=== PATIENT | female | born 1965 | race Caucasian/White ===

== ENCOUNTER 2021-02-04 12:31 | Emergency (ER) | payer MEDICAID, SELFPAY ==
[2021-02-04] VITALS (8 sets, daily range): BP systolic 119–138; BP diastolic 74–95; PULSE 77–88; RESP 16–18; TEMP 36.1; O2SAT 95–97; BMI 36.3
[2021-02-04 13:26] LABS: Absolute Lymphocyte Count 2.21 X10^3/uL (0.83-4.51); Absolute Neutrophil Count 3.1 X10^3/uL (2.0-7.7); Basophil# 0.03 X10^3/uL; Basophil% 0.5 % (0-1); Eosinophil# 0.19 X10^3/uL; Eosinophils% 3.2 % (0-5); Hematocrit 39.2 % (37-47); Lymphocyte # 2.21 X10^3/ul (0.83-4.51); Lymphocyte % 37.6 % (19-41); Mean Corp Hgb Conc 33.2 g/dL (32-36); Mean Corpuscular Hgb 29.1 pg (27.0-32.0); Mean Corpuscular Volume 87.9 fL (81-99); Mean Platelet Vol. 9.5 fl (6.2-12.0); Monocyte# 0.34 X10^3/uL; Monocyte% 5.8 % (0-10); NRBC Flagged by Analyzer 0 % (0-5); Neutrophil % 52.7 % (47-70); Platelet Count 263 K/mm3 (150-450); RBC Distribution Width CV 12.1 % (11.6-14.6); RBC Distribution Width SD 38.8 fl (35.1-43.9); Red Blood Count 4.46 M/mm3 (4.2-5.4); White Blood Count 5.9 K/mm3 (4.4-11.0)
--- NOTE | 2021-02-04 13:27 | ED.RN ---
States voices are telling her she was no good and piece of shit. Looking online for ways of suicide, states would use helium balloon to suffocate or would crash my car. Had episodes of auditory hallucinations 6 months ago as well. Previous attempts at suicide, 2013 and in my 20s. bus and sys integration senior manager at bedside states they attempted to get patient in with crisis but was unsuccessful so brought patient here.
[2021-02-04 13:36] LABS: Amphetamine Urine VISTA NEGATIVE (<1000 ng/mL); Barbiturate Urine VISTA NEGATIVE (< 200 ng/mL); Benzodiazepine Urine VISTA NEGATIVE (< 200 ng/mL); Cocaine Urine VISTA NEGATIVE (< 300 ng/mL); Ecstacy Urine VISTA NEGATIVE (< 500 ng/mL); Methadone Urine VISTA NEGATIVE (< 300 ng/mL); PCP Urine VISTA NEGATIVE (< 25 ng/mL); THC Urine VISTA NEGATIVE (< 50 ng/mL); Vista UDS pH Range 6
[2021-02-04 13:40] LABS: Anion Gap 4 (5-15); BUN 18 mg/dL (7-18); BUN/Creat Ratio 23.2 RATIO (10-20); Calcium,Total 9.4 mg/dL (8.5-10.1); Chloride 104 mmol/L (98-107); Creatinine, Serum 0.78 mg/dL (0.55-1.02); EST Glomerular Filtration Rate 82 mL/min (>60); Est Glom Filt Rate - Afr Amer 99 mL/min (>60); Estimated Creatinine Clearance 75.39 ml/min; Glucose 145 mg/dL (74-106); Potassium 3.9 mmol/L (3.5-5.1); Sodium Level 138 mmol/L (136-145)
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
--- NOTE | 2021-02-04 15:47 | EX.ED.DYSGE1 ---
HPI History of Present Illness Chief Complaint: Suicidal Narrative Narrative: Patient presenting with suicidal thoughts and has a plan to try to take her own life. She expresses that she may try to kill herself using helium and she also expresses no drive her car into park wall. He has not no attempt currently. Patient denies ingestion. PFSH PFSH Home Medications cyclobenzaprine 10 mg PO QHS 06/20/15 [History Last Taken 06/19/15 22:00] hydrocodone-acetaminophen 1 tab PO TID 06/20/15 [History Last Taken 06/20/15] hydroxyzine pamoate 25 mg PO 4X/DAY PRN PRN #100 capsule 06/22/15 [Rx Last Taken Unknown] Allergy/AdvReac Type Severity Reaction Status Date / Time acetaminophen [From Percocet] Allergy Swelling Verified 02/04/21 12:36 bee pollen Allergy Anaphylaxis Verified 02/04/21 12:36 ibuprofen Allergy Angioedema Verified 02/04/21 12:36 naproxen [From Aleve] Allergy Angioedema Verified 02/04/21 12:36 oxycodone HCl [From Percocet] Allergy Swelling Verified 02/04/21 12:36 Social History Smoking Status: Current every day smoker tobacco type: cigarettes ROS ROS ED Constitutional Constitutional ED: Denies chills, fever(s) or sweats Eyes Eyes: Denies blurry vision or change in vision ENT ENT ED: Denies ear pain or sore throat Cardiovascular Cardiovascular: Denies chest pain, palpitations or racing heartbeat Respiratory/Chest Respiratory/Chest: Denies cough, dyspnea or sputum Gastrointestinal Gastrointestinal: Denies abdominal pain, constipation, diarrhea, nausea or vomiting Genitourinary Genitourinary ED: Denies dysuria, hematuria or urinary frequency Musculoskeletal Musculoskeletal: Denies arthralgias, myalgias or neck pain Integumentary Denies abscess, Abrasions or rash Neurologic Neurologic: Denies headache(s), paresthesias or weakness Psychiatric Psychiatric: Reports depression, suicidal ideation and suicidal thoughts; Denies anxiety Endocrine Endocrinology: Denies polydipsia or polyuria EXAM Physical Exam Const Vital Signs: 02/04/21 12:33 02/04/21 14:33 Temperature 97 F L Temperature Source Temporal Pulse Rate 88 Respiratory Rate 16 16 Blood Pressure 119/95 H Blood Pressure Mean 103 Pulse Ox 95 Oxygen Delivery Method Room Air General Appearance ED: Negative for pallor HEENT Reports normocephalic, head/scalp atraumatic and moist mucous membranes Eyes PERRL and EOMs intact bilaterally Neck no lymphadenopathy and supple Chest Wall inspection of chest normal and palpation of chest normal Resp normal respiratory effort and clear to auscultation bilaterally Auscultation: Negative for rales, rhonchi or wheezes Cardio regular rate and regular rhythm GI normal to inspection, nondistended, normoactive bowel sounds and non-distended Auscultation: normoactive bowel sounds Palpation: soft Narrative: Deferred Extremity normal to inspection General Extremety ED: Negative for edema or tenderness General Extremity: Negative for edema Neuro oriented x3 and CN's II-XII intact bilaterally Sensorium / Orientation: alert Motor Exam: strength 5/5 throughout Psych Attitude: No agitated Thought Content: suicidality and No homicidality Insight: poor Judgement: poor Skin no rashes or lesions noted and no wounds General Skin Exam: Negative for jaundice or pallor MDM MDM MDM Narrative Medical decision making narrative: Patient presenting with suicidal ideation and a plan to take her own life. Patient did have blood work to medically clear her and her CBC and BMP are normal. EtOH is negative. Urine drug review screen is positive for opiates. Given patient's plan I think she needs to be pink slipped and would benefit from inpatient care. She is medically clear at this time. Impression: 1. Suicidal ideation with plan Lab Data Attestation: I reviewed the patient's lab results. Labs: Laboratory Results - last 24 hr 02/04/21 02/04/21 02/04/21 13:10 13:10 13:10 WBC 5.9 RBC 4.46 Hgb 13.0 Hct 39.2 MCV 87.9 MCH 29.1 MCHC 33.2 RDW Std Deviation 38.8 RDW Coeff of Rosalinda 12.1 Plt Count 263 MPV 9.5 Immature Gran % (Auto) 0.200 Neut % (Auto) 52.7 Lymph % (Auto) 37.6 Isabela % (Auto) 5.8 Eos % (Auto) 3.2 Baso % (Auto) 0.5 Absolute Neuts (auto) 3.1 Absolute Lymphs (auto) 2.21 Nucleated RBC % 0 Sodium 138 Potassium 3.9 Chloride 104 Carbon Dioxide 30.0 Anion Gap 4 L BUN 18 Creatinine 0.78 Estim Creat Clear Calc 75.39 Est GFR (MDRD) Af Amer 99 Est GFR (MDRD) Non-Af 82 BUN/Creatinine Ratio 23.2 H Glucose 145 H Calcium 9.4 Urine Opiates Screen Urine Methadone Screen Ur Barbiturates Screen Ur Phencyclidine Scrn Ur Amphetamines Screen U Methamphetamin-MDMA U Benzodiazepines Scrn Urine Cocaine Screen U Cannabinoids Screen Ur Drug Screen Comment Ethyl Alcohol 9.0 02/04/21 13:10 WBC RBC Hgb Hct MCV MCH MCHC RDW Std Deviation RDW Coeff of Rosalinda Plt Count MPV Immature Gran % (Auto) Neut % (Auto) Lymph % (Auto) Isabela % (Auto) Eos % (Auto) Baso % (Auto) Absolute Neuts (auto) Absolute Lymphs (auto) Nucleated RBC % Sodium Potassium Chloride Carbon Dioxide Anion Gap BUN Creatinine Estim Creat Clear Calc Est GFR (MDRD) Af Amer Est GFR (MDRD) Non-Af BUN/Creatinine Ratio Glucose Calcium Urine Opiates Screen POSITIVE H Urine Methadone Screen NEGATIVE Ur Barbiturates Screen NEGATIVE Ur Phencyclidine Scrn NEGATIVE Ur Amphetamines Screen NEGATIVE U Methamphetamin-MDMA NEGATIVE U Benzodiazepines Scrn NEGATIVE Urine Cocaine Screen NEGATIVE U Cannabinoids Screen NEGATIVE Ur Drug Screen Comment Ethyl Alcohol Discharge Plan Triage Chief Complaint: Suicidal ED Provider: Adonay Mendez Dx/Rx/DC Orders Prescriptions: No Action hydrocodone-acetaminophen 1 EACH tablet 1 tab PO TID RF: 0 cyclobenzaprine 10 MG tablet 10 mg PO QHS RF: 0 hydroxyzine pamoate 25 MG capsule 25 mg PO 4X/DAY PRN PRN (Reason: Itching) Qty: 100 RF: 0 Primary Care Provider: Care Physician,No Primary
[2021-02-04] MEDS: HYDROcodone Bitartrate/Apap 5/325 Tablet PO (16:26)
[2021-02-04] MEDS: RisperiDONE 0.5 MG Tablet 1 MG PO (19:39)
[2021-02-04] MEDS: Sertraline 50 MG Tablet PO (19:39)
[2021-02-04] MEDS: Mirtazapine 15 MG Tablet PO (19:39)
--- NOTE | 2021-02-04 19:40 | ED.RN ---
This RN took over at 1900. Hunter reassessment not done
--- NOTE | 2021-02-04 19:56 | ED.RN ---
REPORT CALLED TO TNP, WOOD PUGA.
--- NOTE | 2021-02-04 21:37 | CM.ED ---
MARYANNE faxed referral to [facility]. MARYANNE was contacted by [facility] staff. Admission wanted clarification and spoke to RN jovanny MADDEN called [facility] and was advised that patient was accepted. Requested call back. MARYANNE called [facility] again. Accepting MD is DR. Bowens. Patient is going to Intensive Care Unit. RN to RN is . Lizy called for transport for patient. It will be a couple of hours. MARYANNE faxed copy of pink slip to [facility]. Jovanny PUGA reports she called report and told them that it would be a couple of hours prior to patient being discharged to [facility]. MARYANNE updated patient that she will be discharged to [facility]. Patient verbalized understanding. Plan: [facility] Cinthia CHANDLER
== END 2021-02-04 23:29 ==
PROVIDERS: Emergency Provider Student in an Organized Health Care Education/Training Program
DX: R45.851 Suicidal ideations (principal); F17.210 Nicotine dependence, cigarettes, uncomplicated
CPT/HCPCS: 80048; 80307; 82077; 85025; 87426; 99285

== ENCOUNTER 2021-02-24 10:31 | Emergency (ER) | payer MEDICAID, SELFPAY ==
[2021-02-24 10:32] VITALS: BP 116/82; PULSE 81; RESP 18; TEMP 36.6; O2SAT 100; BMI 37.4
--- NOTE | 2021-02-24 10:37 | CM.ED ---
SOCIAL WORK Received call from Francoise with Crisis. Shanda has completed assessment. Patient requires inpatient psych hospitalization for stabilization. Will fax medical clearance once received. Crisis to facilitate placement. Staff puneet. Celso Hurley MSW, DATA PROCESSING AUDITOR
--- NOTE | 2021-02-24 10:38 | ED.RN ---
PT COUNSELLOR CURRENTLY WITH PT. PT UNDER OBSERVATION WHILE AWAITING ROOM ASSIGNMENT
[2021-02-24 11:08] LABS: Absolute Lymphocyte Count 2.08 X10^3/uL (0.83-4.51); Basophil# 0.05 X10^3/uL; Basophil% 0.6 % (0-1); Eosinophil# 0.23 X10^3/uL; Eosinophils% 2.6 % (0-5); Hematocrit 40.5 % (37-47); Lymphocyte # 2.08 X10^3/ul (0.83-4.51); Lymphocyte % 23.5 % (19-41); Mean Corp Hgb Conc 32.1 g/dL (32-36); Mean Corpuscular Hgb 28.3 pg (27.0-32.0); Mean Platelet Vol. 9.9 fl (6.2-12.0); Monocyte# 0.44 X10^3/uL; NRBC Flagged by Analyzer 0 % (0-5); Neutrophil # 6.03 X10^3/uL (2.7-7.7); Platelet Count 268 K/mm3 (150-450); RBC Distribution Width CV 12.2 % (11.6-14.6); RBC Distribution Width SD 39.5 fl (35.1-43.9); White Blood Count 8.9 K/mm3 (4.4-11.0)
[2021-02-24 11:21] LABS: Anion Gap 7 (5-15); BUN 17 mg/dL (7-18); BUN/Creat Ratio 20.7 RATIO (10-20); Calcium,Total 9.4 mg/dL (8.5-10.1); Chloride 103 mmol/L (98-107); Creatinine, Serum 0.82 mg/dL (0.55-1.02); EST Glomerular Filtration Rate 76 mL/min (>60); Est Glom Filt Rate - Afr Amer 92 mL/min (>60); Estimated Creatinine Clearance 68.93 ml/min; Glucose 143 mg/dL (74-106); Potassium 3.8 mmol/L (3.5-5.1); Sodium Level 140 mmol/L (136-145)
[2021-02-24 11:27] LABS: Amphetamine Urine VISTA NEGATIVE (<1000 ng/mL); Barbiturate Urine VISTA NEGATIVE (< 200 ng/mL); Benzodiazepine Urine VISTA NEGATIVE (< 200 ng/mL); Cocaine Urine VISTA NEGATIVE (< 300 ng/mL); Ecstacy Urine VISTA NEGATIVE (< 500 ng/mL); Methadone Urine VISTA NEGATIVE (< 300 ng/mL); PCP Urine VISTA NEGATIVE (< 25 ng/mL); THC Urine VISTA NEGATIVE (< 50 ng/mL); Vista UDS pH Range 5
--- NOTE | 2021-02-24 11:31 | EKG12_ITS ---
Test Reason : Blood Pressure : / mmHG Vent. Rate : 076 BPM Atrial Rate : 076 BPM P-R Int : 140 ms QRS Dur : 080 ms QT Int : 394 ms P-R-T Axes : 037 037 041 degrees QTc Int : 443 ms Normal sinus rhythm Nonspecific ST and T wave abnormality Abnormal ECG Confirmed by DARRON PATEL, ERIBERTO ([id number]), movie editor PAPITO MOHAMUD ([id number]) on 02/26/2021 10:04:35 AM Referred By: EMERY Confirmed By:ERIBERTO ROB MD
[2021-02-24 11:32] LABS: Alcohol, Blood (Medical)-Serum < 3.0 mg/dL
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
--- NOTE | 2021-02-24 12:42 | CM.ED ---
SOCIAL WORK Referral faxed to [facility]. Pending review at this time. Celso Hurley, CHIEF METER READER, WEB UI SOFTWARE ENGINEER
--- NOTE | 2021-02-24 13:40 | CM.ED ---
SOCIAL WORK Patient accepted to [facility] by Dr. Mauricio. Nurse to call report to [phone]. Intake reports believes able to provide transport via [facility] [employer] and will call this worker back with ETA. Cha requesting test. Dr. Mendez and staff updated. Plan: Semaj Hurley MSW, SPEECH THERAPY ASSISTANT
[2021-02-24 13:54] LABS: Internal QC Validated? YES +Cl - CLEAR BKGD; Pregnancy, Urine Negative Negative
[2021-02-24 14:00] VITALS: BP 121/74; PULSE 73; RESP 16; O2SAT 99
--- NOTE | 2021-02-24 14:30 | CM.ED ---
SOCIAL WORK Call from [facility]. Transport scheduled for 16:30 picker and packer by [facility]. Staff puneet. Celso Hurley MSW, CRYSTALIZER TENDER
--- NOTE | 2021-02-24 14:34 | NURSING ---
[facility] SENDING [facility] AT 1600
[2021-02-24] MEDS: HYDROcodone Bitartrate/Apap 5/325 Tablet PO (14:50)
[2021-02-24 16:36] VITALS: RESP 16
== END 2021-02-24 17:06 ==
PROVIDERS: Emergency Provider Student in an Organized Health Care Education/Training Program; Visit Provider Student in an Organized Health Care Education/Training Program
DX: R45.851 Suicidal ideations (principal); M06.9 Rheumatoid arthritis, unspecified; E11.9 Type 2 diabetes mellitus without complications; E78.00 Pure hypercholesterolemia, unspecified; F17.210 Nicotine dependence, cigarettes, uncomplicated; I10 Essential (primary) hypertension; Z79.899 Other long term (current) drug therapy; M48.00 Spinal stenosis, site unspecified; G89.29 Other chronic pain; J45.909 Unspecified asthma, uncomplicated; K21.9 Gastro-esophageal reflux disease without esophagitis; Z79.84 Long term (current) use of oral hypoglycemic drugs
CPT/HCPCS: G0480; 80048; 80307; 81025; 82077; 85025; 87426; 93005; 99285

== ENCOUNTER 2021-03-22 09:31 | Outpatient (RCR) | payer MEDICAID, SELFPAY ==
--- NOTE | 2021-03-22 10:05 | BH.SGPN.GN ---
Behaviors/Verbalizations/Mental Status: []Client alert and oriented, casually dressed and groomed. Eye contact fair. Motor activity appropriate. Speech within normal limits. Affect constricted, mood depressed. Thoughts linear, logical, no signs of hallucinations or delusions. Client Response/Progress/Benefit: []Pt was an engaged participant AEB pt listening attentively to others and providing input throughout. Attentive during psychoeducation on communication styles. Assisted group with identifying benefits of effective communication on mental health which included: getting needs met, improves relationships, maintains boundaries, and prevents additional conflict. Pt identified she most often uses passive and aggressive communication styles. Pt stated she will hold everything in until she explodes. Benefited from increased awareness of different communication barriers, styles, and the importance of communicating effectively to improve mental wellness. Will continue IOP tx to stablize moods, improve daily functioning and prevent decompensation.
--- NOTE | 2021-03-22 11:05 | BH.SGPN.GN ---
Behaviors/Verbalizations/Mental Status: []Client alert and oriented, casually dressed and groomed. Eye contact fair. Motor activity appropriate. Speech within normal limits. Affect constricted, mood dysthymic. Thoughts linear, logical, no signs of hallucinations or delusions. Client Response/Progress/Benefit: []Pt was an active participant in group discussion. Attentive during psychoeducation on communication styles (Passive, Passive-Aggressive, Aggressive, and Assertive) and benefits/disadvantages to each style. Pt reflected on how her aggressive communication style has impacted her mental health and relationships. Participated in the group activity and learned DEAR MAN skill. Pt reports wanting to work on the assertiveness component of this skill by explaining how she feels rather than expecting supports to read her mind. Benefited from learning DEAR MAN and setting a goal to improve communication. First day of IOP tx. Will continue IOP tx to prevent decompensation, gain healthy coping skills, and maintain safety. Narrative Note: []
--- NOTE | 2021-03-22 17:21 | BH.COMM_ITS ---
Communication Note - Communication with Client Communication Note: Met with patient to complete initial paperwork. No sig nificant change since pre-admission screening. Completed [facility] Suicide screening. Client presents as moderate-high risk due to two recent hospitalizations in the past two months. Client?s most recent hospitalization was due to an interrupted suicide attempt where client drove to a bridge to jump off and kill herself, but her case monitor ?talked me down.? Client reports history of a previous interrupted suicide attempt with the same plan when she was in her 20s. Client has a long-standing history of suicidal ideations, but had not been hospitalized for many years prior to her two most recent hospitalizations. Denied active SI, plan, or intent this AM. Denies any active suicidal ideations, plan, or intent since discharging from the hospital and reports feeling better since discharging from the hospital. Reviewed case with Dr. Carballo with plan to admit to IOP with dx of schizoaffective disorder F 24
--- NOTE | 2021-03-24 09:03 | BH.SGPN.GN ---
Behaviors/Verbalizations/Mental Status: [] Eye contact is good. Motor activity is appropriate. Appearance is casual. Speech is appropriate. Mood is euthymic. Affect is congruent. Thoughts are linear and logical. No evidence of psychosis. Reviewed daily symptom tracker sheet with no reports of suicidal ideations, plan, or intent. Client Response/Progress/Benefit: []Client was engaged throughout group session, sharing and listening attentively to others. Client reported her emotion of the day as ?content?. Client discussed seeing a celebrity on TV make comments on the holocaust, which brought up feelings of loss as some of her family members in the holocaust. Client stated that she yelled at the TV, which made her roommate upset, leading to an argument. Client described going into a rage, but that praying helped her regulate her emotions. Client appeared to benefit from group discussion of additional ways to help decrease anger when feeling rage. Will continue IOP treatment to increase emotion regulation and increase healthy emotional release skills. Narrative Note: []
--- NOTE | 2021-03-29 09:00 | BH.SGPN.GN ---
Behaviors/Verbalizations/Mental Status: []Eye contact is good. Motor activity is appropriate. Appearance is casual. Speech is slow. Mood is exhausted. Affect is flat. Thoughts are linear and logical. No evidence of psychosis. Reviewed daily symptom tracker sheet with no reports of suicidal ideations, plan, or intent. Client Response/Progress/Benefit: [] Client was engaged throughout group session, sharing and providing insight to others. Client reported her mood as ?exhausted?. Discussed seeing her sister who pressured her to discontinue IOP treatment and obtain employment. Client reports setting a boundary with her sister, stating that she would remain in IOP to improve her mental health to be able to manage a job. Client expressed that her sister does not understand mental health, but that she loves her. Appeared to benefit from supportive group discussion regarding setting healthy boundaries with supports. Progress noted AEB client reporting improved communication and healthy boundary setting with supports. Will continue IOP treatment to increase mood stability and continue improving healthy communication skills to allow client to obtain employment. Narrative Note: []
--- NOTE | 2021-04-02 11:07 | BH.SGPN.GN ---
Behaviors/Verbalizations/Mental Status: []Client alert and oriented, casually dressed and groomed. Eye contact good. Motor activity appropriate. Speech within normal limits. Affect congruent, mood anxious, dysthymic. Thoughts linear, logical, no signs of hallucinations or delusions. Client Response/Progress/Benefit: []Client responded well to session as evidenced by client listening attentively to others and providing strategies during small group discussion. Reflected on the importance of identifying and addressing personal warning signs, stating that this can help you do something about it ?before it gets too bad?. Client identified warning signs for crisis and gained further awareness of earliest warning signs. Client created a crisis action plan to help client better manage warning signs for crisis. Client?s action plan for crying spells included: take a shower, watch comedy, listen to music, do a puzzle, as well as reach out for help. Client appeared to benefit from creating a crisis action plan and increasing self-awareness. Progress noted in reports of increased insight and healthy boundary setting. Client to continue IOP tx to improve mood stability, continue to promote healthy coping, and prevent decompensation. Narrative Note: []
--- NOTE | 2021-04-05 10:08 | BH.SGPN.GN ---
Behaviors/Verbalizations/Mental Status: Client alert and oriented, casually dressed and groomed. Eye contact good. Motor activity appropriate. Speech within normal limits. Affect congruent, mood euthymic. Thoughts linear, logical, no signs of hallucinations or delusions. [] Client Response/Progress/Benefit: [] Client responded well to session AEB sharing and listening attentively to others. Client participated in experiential activity illustrating resilience, providing supportive feedback to others. Client participated in group processing, providing insight into the symbolic nature of the activity. Client participated in group discussion of where resilience comes from, expressing that she feels it is both a learned and inherent characteristic. Identified benefits of resilience including spending less time stressing, and barriers to building resilience as fear and not challenging themself. Clinician provided psychoeducation on ten strategies to increase resilience. Appeared to benefit from increased knowledge of strategies to build resilience. Will continue IOP treatment to continue increasing mood stability and decrease negative self talk to increase overall functioning. Narrative Note: []
--- NOTE | 2021-04-05 11:07 | BH.SGPN.GN ---
Behaviors/Verbalizations/Mental Status: []Client alert and oriented, casually dressed and groomed. Eye contact good. Motor activity appropriate. Speech within normal limits. Affect congruent, mood anxious and dysthymic. Thoughts linear, logical, no signs of hallucinations or delusions Client Response/Progress/Benefit: []Client responded well to session AEB contributing to discussion and completing the resilience worksheet provided. Client participated in the discussion of how each resiliency component can help increase personal resiliency. Worked cooperatively with group to identify strategies to enhance each of the components discussed. Client identifying doing well with the resilience components of: avoid seeing crises as insurmountable and nurture a positive view of yourself. Went on to reflect wanting to improve in the personal resilience component of ?Accept that change is a part of living?. Client stated she wants to work on this by taking more accountability for her daily actions/choices. Client seemed to benefit from discussing strategies for improving personal resilience. Will continue IOP tx to prevent decompensation, continue to promote application of healthy coping skills, and further reduce sx of depression. Narrative Note: []
--- NOTE | 2021-04-07 10:10 | BH.SGPN.GN ---
Behaviors/Verbalizations/Mental Status: Client alert and oriented, casually dressed and groomed. Eye contact good. Motor activity appropriate. Speech within normal limits. Affect flat, mood euthymic. Thoughts linear, logical, no signs of hallucinations or delusions. [] Client Response/Progress/Benefit: []Client responded well to session AEB sharing and listening attentively to others. Client participated in group discussion defining taking action, stating that it is ?being here to gain skills to use outside?. Provided an example of taking action as setting boundaries in relationships. Group identified barriers to taking action, with client stating that not identifying the need for change would be an example. Clinician discussed how certain emotional states can color our perspective, describing it as ?what is driving your bus?. Client provided a toxic person, not following through, and having limited support as driving her ?bus? most often. Appeared to benefit from increased self-awareness and knowledge regarding examples and barriers to taking action. Will continue IOP treatment to increase healthy communication skills and mood stability to improve daily functioning. Narrative Note: []
--- NOTE | 2021-04-12 11:10 | BH.SGPN.GN ---
Behaviors/Verbalizations/Mental Status: []Client alert and oriented, casually dressed and groomed. Eye contact good. Motor activity appropriate. Speech within normal limits. Affect congruent, mood anxious. Thoughts linear, logical, no signs of hallucinations or delusions. Client Response/Progress/Benefit: []Client an active participant AEB providing input to discussion and sharing examples throughout. Reviewed safety behaviors she engages in that reinforce anxiety, identifying avoidance as one she often turns to. Attentive during psychoeducation on mindfulness coping skills and their impact on mental health wellness. The group worked together to brainstorm anxiety reduction strategies. Client reported she will practice salt therapy, aromatherapy, and exercise as ways to help manage anxious symptoms. Client seemed to benefit from increased repertoire of anxiety reduction skills. Client will continue IOP tx to continue to practice healthy coping skills, challenge distorted thoughts, and prevent decompensation. Narrative Note: []
--- NOTE | 2021-04-14 09:04 | BH.SGPN.GN ---
Behaviors/Verbalizations/Mental Status: []Eye contact is good. Motor activity is appropriate. Appearance is casual. Speech is Appropriate. Mood is euthymic. Affect is congruent. Thoughts are linear and logical. No evidence of psychosis. Reviewed daily check in sheet and no reports of suicidal ideations or intent. Client Response/Progress/Benefit: [] Pt responded well to session AEB pt sharing thoughts and feelings, listening attentively to others and providing supportive feedback. Pt stated feeling encouraged today as she had challenged herself to step out of her comfort zone and set a boundary with her roommate the night before. Noted this had gone well and felt empowering for her. Shared reminding herself that her needs are important and that she is not responsible for her roommates reaction. Noted this has encouraged her to work towards setting a larger boundary next week. Appeared to benefit from reflecting on progress and skills used. Pt to continue IOP to continue use of healthy coping and thought challenge skills, improve boundaries, and prevent decompensation. Narrative Note: []
--- NOTE | 2021-04-19 09:03 | BH.SGPN.GN ---
Behaviors/Verbalizations/Mental Status: [] Client alert and oriented, casually dressed and groomed. Eye contact good. Motor activity appropriate. Speech within normal limits. Affect congruent, mood depressed, agitated. Thoughts linear, logical, no signs of hallucinations or delusions. Reviewed client?s symptom tracker denies any suicidal ideation, plan, or intent as of 04/13/21. Client Response/Progress/Benefit: []Client responded well to session, attentive and receptive to feedback on how to help client cope with disappointment regarding a support. Client reports feeling sad this morning as she is still struggling with ruination related to a disagreement with her roommate about a comment made by a mutual friend regarding mental health. Shared wishing her roommate had been more supportive and understanding when the comment had upset client. Related to shared frustrations expressed by fellow participants and suggestions for coping with this. Client noted that this stressor did not prevent her from enjoying her weekend and that she had been able to enjoy a wedding shower with family and not leave following the dispute which she shared as personal progress. Client will continue IOP tx to promote healthy conflict resolution, improve stress management, and continue to encourage mood stability. Narrative Note: []
== END 2021-03-24 10:43 | disposition home or self-care (01) ==
LOC: BHIOP 09:31
PROVIDERS: Referring Provider Psychiatry & Neurology Psychiatry; Visit Provider Psychiatry & Neurology Psychiatry
DX: F25.9 Schizoaffective disorder, unspecified (principal)
CPT/HCPCS: H2020

== ENCOUNTER 2021-03-23 07:32 | Outpatient (RCR) | payer MEDICAID, SELFPAY ==
--- NOTE | 2021-03-22 09:00 | BH.SGPN.GN ---
Behaviors/Verbalizations/Mental Status: []Eye contact is good. Motor activity is appropriate. Appearance is casual. Speech is appropriate. Mood is anxious. Affect is congruent. Thoughts are linear and logical. No evidence of psychosis. Reviewed daily symptom tracker sheet with no reports of suicidal ideations, plan, or intent. Client Response/Progress/Benefit: []Client was engaged and provided insight to others throughout group session. Client reported her emotion as ?scared?, as today is her first day of IOP treatment. Client discussed having bad dreams which led her to feel depressed and panic. Client appeared to benefit from group discussion of healthy coping skills to aid in relieving panic. Client reported reading her bible and praying as a way to help with these symptoms. Client stated that she is looking forward to improving her functioning through the program, as she needs to return to work. Will continue IOP treatment to prevent decompensation and increase knowledge of healthy coping skills to allow client to obtain employment. Narrative Note: []
--- NOTE | 2021-03-23 09:08 | BH.COMM ---
Communication Note - Communication with Client Communication Note: Met with patient to complete initial paperwork. No significant change since pre-admission screening. Completed [facility] Suicide screening. Client presents as moderate-high risk due to two recent hospitalizations in the past two months. Client?s most recent hospitalization was due to an interrupted suicide attempt where client drove to a bridge to jump off and kill herself, but her family service caseworker ?talked me down.? Client reports history of a previous interrupted suicide attempt with the same plan when she was in her 20s. Client has a long-standing history of suicidal ideations, but had not been hospitalized for many years prior to her two most recent hospitalizations. Denied active SI, plan, or intent this AM. Reports feeling better since discharging from the hospital. Reviewed case with Dr. Carballo with plan to admit to IOP with dx of schizoaffective disorder F 24
--- NOTE | 2021-03-24 10:10 | BH.SGPN.GN ---
Behaviors/Verbalizations/Mental Status: []Eye contact is good. Motor activity is slowed. Cooperative. Appearance is casual. Speech is Appropriate. Mood is dysthymic. Affect is constricted. Thoughts are linear and logical. No evidence of psychosis. Client Response/Progress/Benefit: []Engaged in experiential activity with peers. Attentive during psychoeducation on what is social support, the benefits of social support, and the things that keep us from utilizing social support for mental wellness. Attentive during interaction discussion and feedback from peers on these subjects AEB head nodding and note-taking. Able to see connection between experiential activity and group topic. Pt identified barriers to social support for her include: lack of trust, fear, peer pressure, and lack of communication. Benefited from increased awareness of the benefits of social support in maintain mental health. Will continue in IOP to stabilize moods, increase healthy coping and prevent decompensation. Narrative Note: []
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
[2021-03-24 12:05] VITALS: BP 129/76; PULSE 92
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
--- NOTE | 2021-03-24 12:47 | BH.DR.ITP ---
Initial Treatment Plan Patient Information Visit Information: ADMISSION DATE: EXPECTED LOS: 4-6 weeks Problems/Symptoms Problem #1:: Depression Symptom:: Sadness, low motivation, anhedonia, low energy, passive thoughts of , recent suicidal ideation Problem #2:: Anxiety Symptom:: Worry, rumination, panic attacks, nightmares, flashbacks, avoidance
--- NOTE | 2021-03-24 15:06 | BH.MDN_ITS ---
Multi-Disciplinary Note - Note 30-min Individual Time Started:: 12:03 Date: 03/24/21 Purpose of session/treatment goals addressed:: To gather information on client's current stressors, symptoms, triggers, and tx goals. Another goal was to build rapport and provide emotional support. Eye Contact:: Fair Motor Activity:: Appropriate Appearance:: Casual Speech:: Rambling, Soft Mood:: Dysthymic Affect:: Constricted Thoughts:: Linear, Logical, No evidence of hallucinations/delusions noted Staff Interventions:: psychoeducation on:, rapport building, strengths perspective, treatment planning Client Response:: Client responded well to session, open to meeting with therapist. Client reports feeling a little tired today because she spoke with the nurse and the IOP psychiatrist. Client shared she is enjoying the program and has found therapy helpful in the past. Client has a treatment team through [facility] including a psychiatric attendant, a counselor, and a vocational case manager. Client shared her vocational case manager is a strong support and deescalated client when client was suicidal. Client identified her IOP goals as getting back into the world which to client means getting a job and improving her functioning. Client stated she has a lot of fear about this, but she knows she needs to find employment. Client shared finances is one of the biggest stressors between client and her roommate. Client would also like to learn healthy coping skills to help regulate emotions and ruminations. Risks/Concerns:: Client denies any active suicidal ideations, plan, or intent as of 03/24/21. Client reports no SI since being discharged from the hospital. Future oriented. Progress Toward Goals/Plan:: Client?s first week of IOP tx and she reports enjoying the program and peers, but shared today was ?a lot of talking.? Client has a long-standing history of depression, auditory hallucinations, and trauma. Client is hopeful that IOP will ?teach me how to live again.? Client currently endorses a depressed mood, anhedonia, ruminations, low energy and motivation, and chronic auditory hallucinations. Client was hospitalized in February of this year, and prior to client's hospitalization she was experiencing suicidal ideations with a plan to drive her car off a bridge. Denies SI since being discharged. Will continue IOP tx to prevent decompensation, gain healthy coping skills, and improve daily functioning. Time Stopped:: 12:20
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
--- NOTE | 2021-03-24 15:08 | BH.MTP ---
[facility] Treatment Plan - Patient Information Program Physician:: Dr. Anita Morrison Primary Therapist:: Yanely QIU - Psychiatric Diagnoses Psychiatric Diagnoses:: Schizoaffective disorder, bipolar type F 25.0; PTSD; Generalized anxiety disorder Diagnosis Code(s):: F 25.0 - Estimated LOS Estimated LOS (in weeks):: 6 Problem/Goal #1 - Problem/Goal #1 Stated Goal:: Client will decrease depressive symptoms, guilt, low motivation, negative self-talk, and anhedonia. Description of Barriers: Client reports long-standing history of suicidal ideations and several attempts throughout her lifetime. Client's most recent attempts were triggered by conflicts with client's roommate. History of complex trauma that continues to impact client. Client is not currently working and she identifies this as a big stressor. Functional Impact: Client is a 55-year-old female with a history of schizoaffective disorder bipolar type. Client reports history of seven previous hospitalizations with the most recent two being in the last two months. Client was recently hospitalized at [facility] from 02/24/21- 03/03/21 due to suicidal ideation with plan to jump off a bridge. Client had not been hospitalized in 20 years prior to these past two hospitalizations. Client reports decompensation is due to psychosocial stressors and conflict with her roommate. Client reports chronic SI and hallucinations, but denies any command hallucinations now. Client reports auditory hallucinations are ongoing, but less intense and frequent. Reports depressive symptoms have improved since discharging from the hospital, but she still feels low. Client endorses low motivation, anhedonia, and lack of motivation. Outside of her treatment team at [facility], client has limited support and could benefit from IOP level of care. Goal Relevant Strengths/Supports: Client has a care team to support her mental health through [facility] which includes a immigration case manager, therapist, and rn psychiatric. Client's amadeo is a protective factor. - Objectives Objective #1 Stated Objective: Client will learn and utilize 2-3 healthy coping strategies to better manage depressive symptoms as shown by preventing decompensation of scores of the DMS-5 for depression. Interventions: Through group and individual sessions, therapist will help client identify triggers and warning signs of depression and emotional dysregulation including emotional, physical, and behavioral changes. Therapist will teach client various coping skills to manage her symptoms and give client tangible resources to use to regulate emotions. Therapist will use cognitive restructuring techniques and help client gain awareness of negative thoughts that reinforce guilt and depression. Therapist will provide psychoeducation on maintenance cycles and help client learn ways to break unhealthy maintenance cycles. Therapist will help client incorporate behavioral activation and assist client in setting SMART goals. Discharge Criteria: Client will have met this goal when she can report learning and using at least 2 coping skills to manage depressive symptoms. Additionally, client will have met this goal if she can prevent decompensation of depressive symptoms on the DSM-5 Target Date: 05/03/21 Review Date: 04/19/21 Status: open Objective #2 Stated Objective: Client will reduce depression and feelings of being hopelessness by accomplishing 1-2 small goals a week. Interventions: Through group and individual sessions, client will learn how to set small SMART goals to promote mood stability. Therapist will teach client the different kinds of self-care as well as the benefits of self-care. Therapist will help client problem-solve barriers and identify ways to increase accountability. Discharge Criteria: Client will have accomplished this goal when can report accomplishing at least one small goal a week. Target Date: 05/03/21 Review Date: 04/19/21 Status: open Problem/Goal #2 - Problem/Goal #2 Stated Goal:: Client will reduce anxiety/PTSD and panic symptoms while increasing ability to function on daily basis. Description of Barriers: Client reports long-standing history of suicidal ideations and several attempts throughout her lifetime. Client's most recent attempts were triggered by conflicts with client's roommate. History of complex trauma that continues to impact client. Client is not currently working and she identifies this as a big stressor. Functional Impact: Client is a 55-year-old female with a history of schizoaffective disorder bipolar type. Client reports history of seven previous hospitalizations with the most recent two being in the last two months. Client was recently hospitalized at [facility] from 02/24/21- 03/03/21 due to suicidal ideation with plan to jump off a bridge. Client had not been hospitalized in 20 years prior to these past two hospitalizations. Client reports decompensation is due to psychosocial stressors and conflict with her roommate. Client reports chronic SI and hallucinations, but denies any command hallucinations now. Client reports auditory hallucinations are ongoing, but less intense and frequent. Reports depressive symptoms have improved since discharging from the hospital, but she still feels low. Client endorses low motivation, anhedonia, and lack of motivation. Outside of her treatment team at [facility], client has limited support and could benefit from IOP level of care. Goal Relevant Strengths/Supports: Client has a care team to support her mental health through [facility] which includes a immigration case manager, therapist, and rn psychiatric. Client's amadeo is a protective factor. - Objectives Objective #1 Stated Objective: Client will identify 2-3 anxiety/panic triggers and 2 coping skills to use when feeling anxious to manage anxiety as shown by decreasing her DSM-5 scores for anxiety. Interventions: Therapist will provide education on anxiety, avoidance behaviors, and maintenance cycles. Therapist will help client explore personal symptoms and warning signs of anxiety. Therapist will teach client coping skills to improve emotional regulation, mindfulness, and distress tolerance to help client cope with anxiety in the moment. Discharge Criteria: Client will have accomplished this goal when she can identify at least 2 triggers and report using 2 coping skills to manage anxiety. Additionally, client will have accomplished this goal when her DSM-5 scores show a reduction for anxiety. Target Date: 05/03/21 Review Date: 04/19/21 Status: open Objective #2 Stated Objective: client will reduce anxiety and feelings of being overwhelmed by accomplishing 2-3 small self-care goals a week. Interventions: Through group and individual sessions, client will learn how to set small SMART goals to promote self-care and stress management. Therapist will provide education on stress and teach client effective stress management strategies. Discharge Criteria: Client will have accomplished this goal when can report accomplishing at least two small goals a week. Target Date: 05/03/21 Review Date: 04/19/21 Status: open
--- NOTE | 2021-03-29 10:00 | BH.SGPN.GN ---
Behaviors/Verbalizations/Mental Status: []Eye contact is good. Motor activity is appropriate. Appearance is casual and grooming tended to. Speech is Appropriate. Mood is dysthymic. Affect is flat. Thoughts are linear and logical. No evidence of psychosis Client Response/Progress/Benefit: []Pt was an engaged participant AEB providing input at times during group discussion and was attentive to others comments. Pt appeared attentive AEB taking notes during psychoeducation about cognitive distortions. Pt benefited from education and increased awareness of cognitive distortions and the role that they play on our behaviors and emotions. Shared with group top three distortions personally uses the most includes: all or nothing thinking, jumping to conclusions, and should/musts. Able to connect impact distortions has on her mental health. Will continue IOP tx to stabilize moods, increase healthy coping and prevent decompensation.
--- NOTE | 2021-03-29 11:15 | BH.SGPN.GN ---
Behaviors/Verbalizations/Mental Status: []Client alert and oriented, neatly dressed and groomed. Eye contact good. Motor activity appropriate. Speech within normal limits. Affect congruent, mood euthymic. Thoughts linear, logical, no signs of hallucinations or delusions. Client Response/Progress/Benefit: []Pt active throughout session, taking notes and contributing examples. Pt was an actively engaged participant in Cognitive Distortions Jeopardy and utilized notes from psychoeducation on cognitive distortions to assist peers in correctly answering questions. Experiential activity was beneficial as it provided a way for pt to review notes and handouts during psychoeducation to answer questions for the game. Pt reflected on today?s topic and wrote her biggest take away from session was learning it is ?okat to not think in black and white. It?s okay to think in the humphries areas.? Pt was given a thought log to complete for homework. Will continue in [facility] tx to prevent decompensation, gain healthy coping skills to help pt rejoin the workforce, and improve mood stability. Narrative Note: []
--- NOTE | 2021-03-31 09:02 | BH.SGPN.GN ---
Behaviors/Verbalizations/Mental Status: []Client alert and oriented, casually dressed and groomed. Eye contact good. Motor activity appropriate. Speech soft and slow. Affect constricted, mood disappointed per her report. Thoughts linear, logical, no signs of hallucinations or delusions. Reviewed client?s symptom tracker, no risk for suicidal ideation, plan, or intent as of 03/31/21 Client Response/Progress/Benefit: C[]Client responded well to session, receptive to feedback from peers. Client reports feeling disillusioned this morning. Client shared she has been ruminating about setting boundaries with her mother and not being able to switch IOP days. Client reported she has been isolating and feeling guilt because of the rumination. Group and hoist worker offered emotional support and helped client challenge distorted thought patterns. Client recognized that she struggles with prioritizing her self-care which makes setting boundaries even more challenging. Appeared to benefit from gaining reassurance on the importance of setting boundaries. Will continue IOP tx to prevent decompensation, increase healthy coping skills, and improve daily functioning. Narrative Note: []
--- NOTE | 2021-03-31 10:10 | BH.SGPN.GN ---
Behaviors/Verbalizations/Mental Status: [] Eye contact is good. Motor activity is appropriate. Appearance is casual. Speech is Appropriate. Mood is depressed. Affect is flat. Thoughts are linear and logical. No evidence of psychosis Client Response/Progress/Benefit: [] Pt was an active participant and engaged during group discussion. Attentive and engaged during psychoeducation on types of boundaries (physical, emotional, sexual, material, and time). Participated in interactive discussion on defining the role of a boundary in mental health. Pt along with peers were able to identify the benefit of setting boundaries which included; personal growth, more control over one's time and life, can improve relationships, can improve mental health, helps us respect ourselves more, and helps us get more accomplished. Pt also provided feedback along with peers on the barriers or things that keep us from from setting boundaries such as; wanting to avoid conflict, fear of missing out, fear of someone not liking us, fear of other's getting angry, belief that one will not stick with the boundary set, and feeling selfish. Benefited from increased awareness of the role of boundaries in mental health. Will continue in IOP to prevent decompensation and readmission to psychiatric hospital. Narrative Note: []
--- NOTE | 2021-03-31 11:10 | BH.SGPN.GN ---
Behaviors/Verbalizations/Mental Status: [] Client alert and oriented, casually dressed and appropriately groomed. Eye contact good. Slowed motor activity. Speech within normal limits. Affect constricted, mood euthymic. Thoughts linear and intact. no signs of delusions or hallucinations. Client Response/Progress/Benefit: [] Client responded well to session AEB listening attentively to peers and providing some input throughout. Client contributed during psychoeducation on the different boundary styles. Client identified connects most with having rigid boundaries with others. Client stated she has been taught that asking for help is weak and this perspective keeps her from reaching out to supports when needed. Participated in group discussion brainstorming various strategies for improving healthy personal boundaries. Client identified wanting to take time to evaluate one of her current relationships. Client stated she needs to identify within her relationship what boundaries she wants to set that can help move relationship to a healthier support. Will continue IOP tx to increase healthy coping skills, practice setting boundaries, improve stress management and prevent decompensation.
--- NOTE | 2021-03-31 15:18 | BH.MDN ---
Multi-Disciplinary Note - Note 30-min Individual Time Started:: 12:15 Date: 03/31/21 Purpose of session/treatment goals addressed:: To identify stressors and triggers in client's life that are contributing to her mental health symptoms. Another goal was to discuss healthy vs unhealthy relationships and boundaries. Eye Contact:: Good Motor Activity:: Appropriate Appearance:: Casual Speech:: Soft Mood:: Dysthymic Affect:: Congruent Thoughts:: Circular, No evidence of hallucinations/delusions noted Staff Interventions:: thought challenging, motivational interviewing, psychoeducation on: - boundaries, rapport building, taught coping skills - boundary setting skills Client Response:: Client responded well to session, open to meeting with therapist. Client reports the group topic today, boundaries, made client realize that I need a healthier relationship with my roommate. Client shared she and her roommate are strictly platonic, but there is some jealously and control from her roommate. They have been roommates and friends for years. Client gave examples unhealthy traits this relationship including frequent conflict, stonewalling, physical/verbal aggression, and attempts at isolating client from supports. Client shared I can't spend time with other friends without a fight. Client also reports a financial imbalance which causes significant stress and frustration for client. Client stated the relationship conflict with her roommate is what triggered her most recent suicidal thoughts and hospitalization. Client acknowledged she struggles with setting boundaries due to guilt, ruminations, and no models for healthy relationships. Client reports she is struggling to set boundaries because her roommate has not respected previous boundaries. Client also shared I'm an all or nothing kind of girl meaning she either sets very firm boundaries or none at all. Discussed the benefits of reflecting on what boundaries client wants before having another conversation with her roommate and reflecting on what the relationship gives to and takes from client. Client plans to write her reflections for homework and will discuss this next week. Risks/Concerns:: Denies any suicidal ideations, plan, or intent as of 03/31/21. Future oriented. No HI. Progress Toward Goals/Plan:: Client is making progress towards her tx goals and reports IOP has been teaching her valuable skills. Client is gaining awareness of her warning signs, triggers, and importance of boundaries. Client has also been denying any SI or passive thoughts of which is progress. Client continues to ruminate excessively, sharing she ruminated about not being able to switch IOP days for several days. Client also reports depressive symptoms, low motivation, difficulty concentrating, and chronic auditory hallucinations. Client will continue IOP tx to promote mood stability, increase ability to cope with stressors, and improve functioning. Time Stopped:: 12:40
--- NOTE | 2021-04-02 09:05 | BH.SGPN.GN ---
Behaviors/Verbalizations/Mental Status: [] Eye contact is good. Motor activity is appropriate. Appearance is casual. Speech is Appropriate. Mood is euthymic. Affect is flat. Thoughts are linear and logical. No evidence of psychosis. Reviewed daily check in sheet and no reports of suicidal ideations or intent. Client Response/Progress/Benefit: [] Pt was an active participant in group discussion. Attentive. Provided appropriate feedback. Emotion for today is hopeful. Mental health win was that she [facility] with her [facility]. She talked at length regarding her conflicted relationship with her mother as well as he mother's deteriorating memory and health. She reports that these visits are very difficult emotionally and discussed her reasons visiting with her mother. Mentioned feeling overwhelmed, depressed, and anxious. Mentioned crying spells. Insight that these emotions are normal and believes that once mother passes on she will feel better for making this effort despite my mom abandoning me. States it best to forgive. Hopeful about today and this weekend. Benefited from group support, encouragement, and feedback. Will continue in IOP to prevent decompensation, stabilize mood, and increase healthy coping. Narrative Note: []
--- NOTE | 2021-04-02 10:06 | BH.SGPN.GN ---
Behaviors/Verbalizations/Mental Status: []Client alert and oriented, casually dressed and groomed. Eye contact good. Motor activity appropriate. Speech within normal limits. Affect constricted, mood euthymic. Thoughts linear, logical, no signs of hallucinations or delusions Client Response/Progress/Benefit: []Client engaged during session AEB client contributing thoughts throughout discussion and completing worksheet. Connected with discussion on crisis and how coping with external crises by using unhealthy coping skills could result in a personal crisis. Group reflected on the importance of having awareness of personal warning signs to prevent reaching crisis point. Group identified potential warning signs for crisis and client completed the personal warning signs worksheet. Client identified personal crisis warning signs to include: crying more, lack of concentration, and rapid mood changes. Client benefited by increasing awareness of what leads to crisis and personal warning signs. Client will continue IOP tx to prevent decompensation, gain healthy coping skills, and improve interpersonal effectiveness skills. Narrative Note: []
--- NOTE | 2021-04-05 09:00 | BH.SGPN.GN ---
Behaviors/Verbalizations/Mental Status: []Client alert and oriented, casually dressed and groomed. Eye contact good. Motor activity appropriate. Speech within normal limits-slow. Affect constricted, mood euthymic. Thoughts linear, logical, no signs of hallucinations or delusions. Reviewed client?s symptom tracker, no risk for suicidal ideation, plan, or intent as of 04/05/21 Client Response/Progress/Benefit: [] Client responded well to session, providing supportive statements to peers. Client reports feeling very sleepy this morning because she stayed up late watching football. Client shared she was proud of herself for getting up this morning and showering before coming to IOP. Client also recently got a gift from a friend which made client feel happy and client has been learning more about healthy boundary setting. Client's relationship with her mother and her roommate continue to be ongoing stressors impacting client's mental health. Appeared to benefit from group feedback on boundary setting. Progress noted in client's increasing self-awareness. Will continue IOP tx to prevent decompensation, gain healthy coping skills, and reduce ruminations. Narrative Note: []
--- NOTE | 2021-04-07 09:00 | BH.SGPN.GN ---
Behaviors/Verbalizations/Mental Status: []Client alert and oriented, casually dressed and groomed. Eye contact good. Motor activity appropriate. Speech within normal limits. Affect congruent, mood euthymic. Thoughts linear, logical, no signs of hallucinations or delusions. Reviewed client?s symptom tracker, no risk for suicidal ideation, plan, or intent as of 04/07/21 Client Response/Progress/Benefit: []Client responded well to session, willing to share and receptive of support from peers. Client reports feeling enthusiastic this morning and attributes this to having an appointment with her welfare case worker to discuss financial assistance for bills while client is not working. Expressed this has helped to feel more confident in her decision to delay working and focus on her mental health needs instead. Went on to discuss a current stressor as beginning to experience more panic in the afternoons. Shared this may be related to continued progress she is making in setting healthy boundaries with her sister who struggles to understand client?s mental health needs. Did well to identify calming skills such as 5-senses technique to use when identifying warning signs for anxiety. Appeared to benefit from support from group. Client progress noted in improved mood and skill application. Will continue IOP tx to prevent decompensation, continue to improve anxiety management skills, and further encourage healthy boundary setting. Narrative Note: []
--- NOTE | 2021-04-07 11:15 | BH.SGPN.GN ---
Behaviors/Verbalizations/Mental Status: []Client alert and oriented, casually dressed and groomed. Eye contact good. Motor activity slowed. Speech within normal limits. Affect congruent, mood euthymic, positive. Thoughts linear, logical, no signs of hallucinations or delusions. Client Response/Progress/Benefit: []Client responded well to session, taking notes and participating in worksheet discussion. Client reported she wants to work on decreasing power a toxic person has on her life. Client stated her goal is to set boundary with roommate once a week. Identified making goal a priority, praying, and setting a reminder as strategies to help support her with this goal. Appeared to benefit from identifying a small goal to benefit mental health. Client to continue IOP to improve confidence, increase ability to set healthy boundaries, and prevent decompensation.
--- NOTE | 2021-04-07 11:49 | PCM.BH.PN_ITS ---
Progress Note Progress Note: History of Present Illness/Interim History: The patient is a with a history of schizoaffective disorder 55-year-old female who is seen in follow- up at the [facility] behavioral health IOP program. I last saw the patient 2 weeks ago her mood is good. But. The patient states that she feels that she her anxiety has worsened a lot lately. She says she has had 3 panic attacks in the past week and they have been more severe than they used to be be. She feels that this is due to financial stress because she has not been working and the fact that her taxes are taking longer than she thought they would to do. Her complex case manager told the patient that she may be able to get her some financial help with her bills. The patient feels that this would lessen her stress which she feels has increased her panic attacks. She is also was continue eating to work on setting boundaries with her roommate and this also is somewhat stressful for her. She remains at baseline or less with her auditory hallucinations. She has been compliant with her medications. She continues to have chronic passive thoughts of . But however she denies any suicidal ideation, homicidal ideation, delusions or hallucinations other than the mild to minimal auditory hallucinations that she is able to ignore now and are barely there. She has been compliant with her medications. (increased on February 24, 2021) Risperdal 3 mg p.o. twice daily; Remeron 30 mg p.o. nightly (increased February 24); Zoloft 100 mg p.o. twice a day; prazosin MSE: the patient is a [] [] Diagnoses: [] Plan: [] 55-year-old single female who is seen wearing a mask due to the pandemic and is casually dressed and groomed with good hygiene. She is cooperative during the interview and has no psychomotor agitation or retardation. Eye contact is good and speech is normal rate and rhyt Thought process is goal-directed and organized. Thought content:hm and fluent with no pressure. Mood is euthymic. Affect is constricted. There is evidence of minimal baseline chronic auditory hallucinations which say negative comments but are very difficult to hear and she is able to easily ignore them. There is no evidence of any other delusions or hallucinations. There is no evidence of homicidal ideation, suicidal id eation, plan for suicide. There i Reality testing is intact.s evidence of chronic, passive thoughts of . Judgment is intact. Insight is good. Impulsivity is moderate. 1. Schizoaffective disorder, bipolar type II. PTSD 3. Generalized anxiety disorder 4. Primary support and housing issues Plan patient will continue the IOP program at [facility] as the structure, support, education, and group therapy will hopefully prevent worsening of the patient's symptoms which might require rehospitalization. She felt safe during the interview and if it anytime she does not feel safe she will let us know or go to the emergency room. The risks, options, possible complications and side effects of the medications were again discussed with the patient and she understands and accepts these. The patient was given a refill for her Remeron prescription today. In addition hydroxyzine she was given 25 mg, 1-2 #90 with 1 refill. Prescription was sent in for the Vistaril and the Remeron refill. p.o. as needed for panic attack up to 3 times a day. She will continue to follow-up with her outpatient providers and I will see the patient in follow-up in 1 to 2 weeks.:
--- NOTE | 2021-04-07 14:26 | BH.MDN ---
Multi-Disciplinary Note - Note 30-min Individual Time Started:: 12:15 Date: 04/07/21 Purpose of session/treatment goals addressed:: To address current stressors, symptoms, and progress towards treatment goals. Another goal was to discuss boundaries and healthy relationships. Eye Contact:: Fair Motor Activity:: Appropriate Appearance:: Casual Speech:: Tangential, Other - slow Mood:: Anxious Affect:: Constricted Thoughts:: Circular, No evidence of hallucinations/delusions noted Staff Interventions:: motivational interviewing, CBT techniques, mindfulness skills - reviewed deep breathing, strengths perspective, taught coping skills - discussed improving self-worth through exploring why pt deserves boundaries. Gave pt the personal bill of rights., other - boundary setting and healthy relationships Client Response:: Client responded well to session, open to meeting with therapist. Client reports overall she has been feeling much better than she was a month ago. Client stated she no longer feels suicidal and her depression is resolving. Client reports her biggest stressors continue to be her finances and her self-report toxic relationship with her roommate. Client shared her anxiety has been high because she has not got her taxes back and is living off of her savings. This also contributes to her relationship stress as client's roommate does not pay the bills. Client stated she is working with her renal case manager to find assistance to help pay bills. Client completed her homework from last session and she shared I'm struggling to find anything positive in the relationship with her roommate. Client shared she feels torn because she can see the relationship is toxic, but she does not like change. Client wants to start by setting small boundaries and see how her roommate reacts. Discussed coping skills she can use to help set boundaries and manage anxiety. Client also provided with the personal bill of rights and encouraged to identify why she deserves healthy boundaries. Risks/Concerns:: Client denies any suicidal ideations, plan, or intent as of 04/07/21. Future oriented. Denies any HI. Progress Toward Goals/Plan:: Client is making progress towards her treatment goals AEB self-report of no suicidal ideations and reduced depressive symptoms. Client, however, reports her anxiety has worsened recently which client contributes to interpersonal relationship issues and financial stress. Client has been having panic attacks which is out of character for client, per her report. Has been working with renal case manager to help with financial situation. Will continue IOP tx to prevent decompensation of anxiety symptoms, improve emotional regulation skills, and increase ability to set healthy boundaries. Time Stopped:: 12:45
--- NOTE | 2021-04-09 10:28 | BH.COMM ---
Communication Note - Communication with Client Communication Note: cancelled due to weather
--- NOTE | 2021-04-12 09:00 | BH.SGPN.GN ---
Behaviors/Verbalizations/Mental Status: [] Eye contact is good. Motor activity is appropriate. Appearance is casual. Speech is Appropriate. Mood is depressed. Affect is flat. Thoughts are linear and logical. No evidence of psychosis. Reviewed daily check in sheet and no reports of suicidal ideations or intent. Client Response/Progress/Benefit: [] Pt was an active participant in group discussion. Attentive. Provided appropriate feedback. Daily symptom tracker notes 02/24 for anxiety and depression. Reports that she had several panic attacks over the weekend and had to utilize PRN medications. Primary triggers was notice that she might get her utilities shut off. Worried and fearful. She reports that she may get my taxes back which will help pay the bill. 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 She is contemplating getting a job as she has not had one since January (due to her mental health and 2 psych admits). She reports increased stability and states she likes to work. Regression noted per pt report. Benefited from group support, encouragement, and feedback. Will continue in IOP to maintain safety, prevent decompensation, and improve functioning. Narrative Note: []
--- NOTE | 2021-04-12 10:05 | BH.SGPN.GN ---
Behaviors/Verbalizations/Mental Status: []Client alert and oriented, casually dressed and groomed. Eye contact good. Motor activity appropriate. Speech within normal limits. Affect flat, mood euthymic. Thoughts linear, logical, no signs of hallucinations or delusions. Client Response/Progress/Benefit: []Client responded well to session AEB sharing and listening attentively to others. Client participated in group discussion defining anxiety, contributing that anxiety is ?perceived danger and fear of the unknown?. Client also identified that anxiety can affect emotions, thoughts, and feelings. Group discussed the benefits of anxiety, as well as when it becomes abnormal. Clinician provided psychoeducation on anxiety diagnoses and the anxiety triangle of physical symptoms, safety behaviors, and common anxious thoughts. Client identified physical symptoms of anxiety as including neck pain, dry mouth, and stiff muscles.Connected with discussion reviewing anxiety safety behaviors and reported personal safety behaviors as reassurance seeking and overplanning. Client appeared to benefit from increased knowledge of anxiety diagnoses and causes, as well as improved self awareness of anxiety symptoms. Will continue IOP treatment to improve mood stability and healthy coping skills to increase overall functioning. Narrative Note: []
--- NOTE | 2021-04-13 10:46 | BH.COMM_ITS ---
Communication Note - Communication with Client Communication Note: This therapist spoke with pt's disease case manager at [facility] about pt progress, attendance, and stressors for continuity of care purposes.
--- NOTE | 2021-04-13 10:46 | BH.COMM ---
Communication Note - Communication with Client Communication Note: This therapist spoke with pt's caseworker at [facility] about pt progress, attendance, and stressors for continuity of care purposes.
--- NOTE | 2021-04-14 10:06 | BH.SGPN.GN ---
Behaviors/Verbalizations/Mental Status: []Client alert and oriented, casually dressed and groomed. Eye contact good. Motor activity appropriate. Speech within normal limits. Affect congruent, mood euthymic. Thoughts linear, logical, no signs of hallucinations or delusions. Client Response/Progress/Benefit: []Client responded well to session AEB sharing and listening attentively to others. Client participated in group discussion of the impacts of anger, stating ?holding on to anger upsets yourself, not someone else?, and identified consequences of unmanaged anger as physical health issues and loss of relationships. Group discussed the benefits of managed anger and anger as a secondary emotion. Client completed anger iceberg worksheet, reporting outward personal signs of anger as cussing, crying, and restlessness. Identified underlying emotions that contribute to anger including abandonment, shame, and worry. Appeared to benefit from increased knowledge of anger as a secondary emotion and increased self-awareness of signs and emotions that contribute to anger. Will continue IOP treatment to continue increasing mood stability and healthy communication skills to improve daily functioning. Narrative Note: []
--- NOTE | 2021-04-14 11:05 | BH.SGPN.GN ---
Behaviors/Verbalizations/Mental Status: []Client alert and oriented, casually dressed and groomed. Eye contact good. Motor activity appropriate. Speech within normal limits. Affect constricted, mood anxious. Thoughts linear, logical, no signs of hallucinations or delusions. Client Response/Progress/Benefit: []Pt was engaged throughout AEB participating in discussion and taking notes. Pt experienced frustration during the activity and did well to participate and work through those emotions. Contributed as group brainstormed healthy coping skills for better managing anger which included: deep breathing, counting, exercise, DDD, and looking at the consequences of responding in anger. Pt appeared to benefit from identifying different techniques to manage anger as well as gaining awareness of the costs of anger. Pt reported when their anger is unmanaged, pt becomes restless, cusses, and yells. Pt selected praying and counting to better manage anger. Will continue IOP tx to improve mood stability, further increase the use of healthy coping skills, and reduce distorted thought patterns. Narrative Note: []
--- NOTE | 2021-04-14 14:15 | BH.MDN_ITS ---
Multi-Disciplinary Note - Note 30-min Individual Time Started:: 12:00 Date: 04/14/21 Purpose of session/treatment goals addressed:: To work on goal #2 of pt's tx plan. Another goal was to discuss progress with boundary setting. Eye Contact:: Good Motor Activity:: Appropriate Appearance:: Casual Speech:: Other - repetitive Mood:: Anxious Affect:: Congruent - tearful at times Thoughts:: Circular, No evidence of hallucinations/delusions noted Staff Interventions:: thought challenging, mindfulness skills - practiced guided imagery during session, strengths perspective, taught coping skills, other - discussed boundary setting Client Response:: Pt responded well to session, open to meeting with therapist. Pt reports feeling anxious during session as pt has to drive to [employer] and it is snowing. Pt shared she does not drive in the snow due to high anxiety. Pt receptive to practicing a grounding technique called guided imagery. Pt responded well to the guided imagery script therapist led pt through. After pt shared I needed that I'm not anxious at all. Pt also discussed that she continues to be anxious about setting boundaries with her roommate, but pt is making progress. Pt shared she set a small boundary with her roommate this week and it went well. Pt fears that her roommate with cut me out of her life when pt sets firmer boundaries in the future. This made pt tearful, but pt reports she wants to prioritize her own self-care finally. Also combatted the guilt pt feels for setting boundaries and pt was reminded that she can be a good person and have boundaries. Pt encouraged to practice guided imagery again today after driving and as needed to regulate her emotions. Risks/Concerns:: Pt denies any suicidal ideations, plan, or intent as of 04/14/21. No passive thoughts of . Future oriented. Progress Toward Goals/Plan:: Pt is making progress towards her tx goals AEB her active engagement and application of boundary setting skills. Pt also responded well to practicing guided imagery to reduce anxiety in session. Pt continues to struggle with ruminations around boundary setting, panic attacks, some avoidance, and worry about finances. Pt is working on communicating more effectively and regulating her emotions when faced with conflict. Pt's relationship with her roommate and finances continue to be pt's biggest stressors. Pt will continue IOP tx to promote emotional regulation skills, reduce ruminations, and increase mood stability. Time Stopped:: 12:30
--- NOTE | 2021-04-16 08:19 | BH.COMM ---
Communication Note - Communication with Client Communication Note: pt cancelled due to weather.
--- NOTE | 2021-04-16 11:36 | BH.COMM ---
Communication Note - Communication with Client Communication Note: This therapist spoke with pt's outpatient therapist at [facility] to discuss progress and estimated discharge date.
--- NOTE | 2021-04-19 10:15 | BH.SGPN.GN ---
Behaviors/Verbalizations/Mental Status: []Client alert and oriented, casually dressed and groomed. Eye contact good. Motor activity appropriate. Speech within normal limits. Affect congruent, mood euthymic. Thoughts linear, logical, no signs of hallucinations or delusions. Client Response/Progress/Benefit: []Client responded well to session AEB sharing and listening attentively to others. Client provided insight throughout group activity identifying famous individuals and how they overcame failure to be successful. Group defined fear of failure, and client stated that it includes fear of not being good enough. Client identified times when she experienced fear of failure when she was planning to start IOP and when looking for a job. Group identified the impacts of fear of failure on their mental health and relationships. Client participated in experiential activity, providing supportive feedback to others and problem solving with group members. Appeared to benefit from increased knowledge of fear of failure. Will continue IOP treatment to continue increasing application of healthy coping skills and decreasing negative self-talk to improve daily functioning. Narrative Note: []
--- NOTE | 2021-04-19 11:15 | BH.SGPN.GN ---
Behaviors/Verbalizations/Mental Status: []Client alert and oriented, casually dressed and groomed. Eye contact good. Motor activity appropriate. Speech within normal limits. Affect constricted, mood sad. Thoughts linear, logical, no signs of hallucinations or delusions. Client Response/Progress/Benefit: []Client responded well to session, engaged in the experiential activity and attentive throughout group processing. Client completed fear of failure worksheet and was able to identify thoughts and behaviors that reinforce personal fear of failure including: ?nay pb,? fear of embarrassment, rigid goals, and avoidance. Client also reported that fear of failure has kept client from going to college and applying for jobs. Client participated in small group discussion regarding strategies to overcome fear of failure. Identified wanting to work on challenging fear of failing by meeting with her therapist to set small goals. Appeared to benefit from increased knowledge of strategies to combat fear of failure and gaining self-awareness. Client will continue IOP treatment to increase anxiety management skills, reduce negative thinking, and improve healthy boundaries. Narrative Note: []
== END 2021-04-19 23:59 | disposition home or self-care (01) ==
LOC: BHIOP 07:32
PROVIDERS: Referring Provider Psychiatry & Neurology Psychiatry; Visit Provider Psychiatry & Neurology Psychiatry
DX: F25.0 Schizoaffective disorder, bipolar type (principal); F43.10 Post-traumatic stress disorder, unspecified; F41.8 Other specified anxiety disorders; Z79.899 Other long term (current) drug therapy
CPT/HCPCS: 90792; 99213; H2020; S9480; T1002; 90832

== ENCOUNTER 2021-04-20 07:41 | Outpatient (RCR) | payer MEDICAID, SELFPAY ==
[2021-04-20 00:39] VITALS: BP 129/76; PULSE 92
--- NOTE | 2021-04-21 09:00 | BH.SGPN.GN ---
Behaviors/Verbalizations/Mental Status: []Eye contact is good. Motor activity is appropriate. Appearance is casual. Speech is Appropriate. Mood is anxious. Affect is constricted. Thoughts are linear and logical. No evidence of psychosis. Reviewed daily check in sheet and no SI indicated. client Response/Progress/Benefit: P[]Pt responded well to session, attentive and engaging with peers. Pt reports feeling fearful this morning because she has been thinking about the changes that will come when pt leaves IOP. Pt is not ready to discharge, but the group normalized feeling anxious about leaving a support system. Pt shared she also feels upset about something that happened over the weekend that pt is ruminating about. Pt receptive to feedback from therapist and peers on thought challenging and focusing on what is in pt's control. Pt's positive today was that pt went to a basketball game recently and enjoyed this. Progress noted in pt's consistent attendance, but pt's mood is more depressed today and IOP staff will continue to monitor. Will continue IOP tx to prevent decompensation, increase emotional regulation skills, and challenge distortions. Narrative Note: []
--- NOTE | 2021-04-21 10:05 | BH.SGPN.GN ---
Behaviors/Verbalizations/Mental Status: []Client alert and oriented, casually dressed and groomed. Eye contact good. Motor activity appropriate. Speech within normal limits. Affect congruent, mood euthymic. Thoughts linear, logical, no signs of hallucinations or delusions. Client Response/Progress/Benefit: []Client responded well to session AEB sharing and listening attentively to others. Client participated in group discussion regarding the benefits of healthy relationships, which client stated includes having someone to talk to and challenge you to be your best self. Group discussed factors that can contribute to relationships becoming unhealthy, with client providing that lack of boundaries or too rigid boundaries and addictions as factors. Client participated in experiential activity modeling healthy relationship behaviors, providing supportive feedback throughout. Appeared to benefit from increased knowledge of the benefits of healthy relationships and characteristics of unhealthy relationships. Will continue IOP treatment to continue increasing healthy boundary setting and decrease rumination to improve daily functioning. Narrative Note: []
--- NOTE | 2021-04-21 12:30 | PCM.BH.PN ---
Progress Note Progress Note: History of Present Illness/Interim History: [] The patient is a 55-year-old female with a history of schizoaffective disorder who is seen in follow-up at the [facility] behavioral health IOP program. I last saw the patient's 2 weeks ago. 1 week ago we added hydroxyzine to help with panic attacks and increases in anxiety. The patient states that she feels that she is doing okay overall lately. She continues to have some stress with her roommate. The patient's niece recently made derogatory remarks about people with mental health issues and when the patient discussed it with her roommate the roommate was somewhat hostile. Discussed with the patient setting boundaries around things that other people say in ignorance or due to their own issues. The patient says she has been working on setting boundaries here at the IOP program and is going to discuss soon with her roommate the fact that she may move out due to their difficulties causing her to be admitted to the hospital. She feels the skills she is learning in the IOP program is helping her to set these boundaries. She denies suicidal ideation and states that she is having much less chronic, passive thoughts of lately. She denies homicidal ideation, delusions and delusions or hallucinations also except for the minimal auditory hallucinations that she is able to ignore now unless she is severely stressed. Current Psychiatric Medications: [] Risperdal 3 mg p.o. twice a day,; Remeron 30 mg p.o. nightly; Zoloft 100 mg p.o. twice a day; prazosin; Vistaril 25 mg one p.o. as needed for panic attack Mental Status Examination: [] The patient is a 55-year-old female who is seen wearing a mask due to the pandemic and is casually dressed and groomed with good hygiene. She is cooperative during the interview and has no psychomotor agitation or retardation. She is ambulatory with a normal gait. Eye contact is good and speech is normal rate and rhythm with no pressure. Thought process is goal-directed and organized. Thought content: The patient has no evidence of suicidal ideation, homicidal ideation or delusions. She has evidence of decreasing chronic, passive thoughts of . She has evidence of minimal to mild auditory hallucinations that worsen if she is severely stressed but have been minimal lately. Reality testing is intact. Judgment is intact. Insight is good. Impulsivity is moderate. Diagnoses: [] 1. Schizoaffective disorder, bipolar type 2. PTSD 3. Generalized anxiety disorder 4. Primary support and housing issues Plan: [] The patient will continue the IOP program at [facility] in behavioral health as the structure, support, education and group therapy will hopefully prevent worsening of the patient's symptoms which might require hospitalization. She felt safe during the interview and if it anytime she does not feel safe she will let us know or go to the emergency room. The risks, options, possible complications and side effects of the medications were again discussed with the patient and she understands and accepts these. No medication changes were made today and she will continue on her current medications. She will continue to follow-up with her outpatient psychiatric and medical providers.
--- NOTE | 2021-04-21 15:04 | BH.MDN_ITS ---
Multi-Disciplinary Note - Note 30-min Individual Time Started:: 12:05 Date: 04/21/21 Purpose of session/treatment goals addressed:: To address current symptoms, triggers, and stressors. Another goal was to challenge distorted thought patterns and set concrete goals. Eye Contact:: Fair Motor Activity:: Slowed Appearance:: Casual Speech:: Tangential Mood:: Anxious, Dysthymic Affect:: Constricted - tearful Thoughts:: Circular, No evidence of hallucinations/delusions noted Staff Interventions:: thought challenging, CBT techniques, mindfulness skills, reviewed DSM-5, goal setting - Pt will get information on three potential jobs, taught coping skills Client Response:: Pt responded well to session, open to meeting with therapist. Pt was tearful today and reports feeling more down than usual. Pt shared she is still upset about something that was said in front of pt at a bridal shower this weekend. Pt also was triggered on Monday because it was the anniversary of her grandma's . Pt shared she was my mom and my dad. These recent stressors on top of pt's ongoing stressors with finances and the toxic environment with her roommate are all causing worsening symptoms this week. Pt had originally wanted to set a firm boundary with her roommate this week, but after discussion, pt decided it would be best to wait. Pt's perspective and thought patterns were negative and distorted during session and therapist helped pt gain awareness of this. Pt admits that when she is sad, pt tends to mind-read and assume the worst. Practiced thought challenging in session by looking alternative perspectives from a recent interaction with a support. Pt wrote out three positive messages to keep with her to help combat distortions when she gets home. Also discussed solutions to reduce some of her current financial stressors. Pt shared she is ready to be homeless if she has to be, but recognized she was catastrophizing as pt has many supports to house her. Pt can also begin the process of applying for jobs to obtain income, which is something pt admits to have been avoiding. Set a goal for pt to look into three places she would be interested in working at and get more information by Monday. Pt shared her case management coordinator is supposed to be helping with this as well. Risks/Concerns:: Pt denies any active suicidal ideations, plan, or intent as of 04/21/21. Continues to be future oriented and able to keep self safe. Pt does report having passive thoughts of and not caring if she dies. This is a change from previous sessions. Pt was also more tearful than usual today and reported missing two doses of her medication. Therapist will continue to monitor mood and assess risk factors. Progress Toward Goals/Plan:: Pt reports worsening symptoms this week due to stressors listed above. Pt?s tx plan review scores did not increase significantly, but they did go up overall by one point. Pt?s scores for depression actually decreased by 50% since admission. However, anxiety increased which can be attributed to the stressors discussed and report of some medication non-compliance. Pt currently endorses crying spells, anxiety, ruminations, distorted thought patterns, avoidance, and passive thoughts of . Pt will continue IOP tx to prevent further decompensation, improve emotional regulation skills, and increase daily functioning. Time Stopped:: 12:30
--- NOTE | 2021-04-21 15:04 | BH.TPR ---
Treatment Plan Review Date of Admission:: 03/22/21 Date of Treatment Plan Review:: 04/21/21 Admitting Diagnoses:: Schizoaffective disorder, bipolar type F 25.0; PTSD; Generalized anxiety disorder Current Diagnoses:: Schizoaffective disorder, bipolar type F 25.0; PTSD; Generalized anxiety disorder Patient's Response to Treatment:: Pt has responded well to treatment AEB pt consistently attending IOP sessions and self-report of gaining valuable coping skills from topics. Pt contributes well during individual sessions and listens and takes notes during group sessions. Pt applies coping skills outside of IOP, but continues to struggle with managing ongoing stressors. Pt reports benefitting from connecting with peers and having structure from IOP. Status of Current Problems and Symptoms: Pt's problems are ongoing, but pt is improving in some areas. Pt's DSM-5 scores for depression have decreased since admission, but anxiety has increased. Pt reports struggling more over the past week due to multiple stressors including; ongoing conflict with her roommate, financial stress, the anniversary of her grandmothers , and missing a few doses of her medications. Pt's perspective this week is more negative than it has been during previous sessions. Pt was tearful this week over setting boundaries with her roommate and worried about discharging from IOP. Pt also wants to apply for a job, but admits to avoiding this due to fear of failure. Problem #1 Problem Name:: depressive symptoms, guilt, low motivation, negative self-talk Status of Goals:: Objective 1- complete. Pt?s DSM-5 scores for depression have decreased by 50% since admission. Pt can identify her warning signs and has learned numerous strategies to help cope with depressive symptoms. Pt reports using opposite action on a frequent basis. Objective 2- in progress. Pt has been working on setting small boundaries with her roommate to increase self-worth and pt has also been spending more time with healthy supports. Pt currently struggling with boundary setting due to the stressors listed above. Team Recommendations:: Treatment team recommends pt to continue working on this treatment goal to reduce depressive symptoms and combat distorted thinking patterns. Pt encouraged to continue working on improving self-care and it would be beneficial for pt to have a self-care check-list. Problem #2 Problem Name:: anxiety/PTSD, panic symptoms, ruminations Status of Goals:: Objective 1- not complete. Pt can identify her triggers and has learned mindfulness and calming skills. Pt reports struggling to utilize these skills outside of IOP due to forgetting or needing additional support. Pt also has been struggling recently with challenging her perspective and catching distortions that reinforce anxiety. Objective 2- in progress. Pt is working on gathering information to apply for jobs and increasing physical self-care. Pt has been making her mental health more of a priority than she has in the past per her report. Team Recommendations:: Treatment team recommends pt continue working on this goal to prevent further decompensation of anxiety symptoms and decrease avoidance. Pt encouraged to bring in a list of places she would consider applying to for work and together pt and therapist will set small goals. Pt's home health care case manager is helping pt with this as well. Pt also working on catching distorted thought patterns that lead to ruminations and catastrophizing.
--- NOTE | 2021-04-23 09:00 | BH.SGPN.GN ---
Behaviors/Verbalizations/Mental Status: [] Eye contact is good. Motor activity is appropriate. Appearance is casual. Speech is Appropriate. Mood is depressed. Affect is flat. Thoughts are linear and logical. No evidence of psychosis. Reviewed daily check in sheet and no reports of suicidal ideations or intent. Client Response/Progress/Benefit: [] Pt participated at times during the group discussion. Attentive. Provided appropriate feedback. Daily symptom tracker notes 03/27 for anxiety and anger. Pt shared that she slipped on ice yesterday and pulled a muscle. This led to not being able to visit with her mother. Per mother her mother called and was very upset. Per pt she said some hurtful things. Pt set boundaries and was firm and mother responded more appropriately. Pt also received a call from her brother who is homeless and has addiction issues. States yesterday I was an emotional wreck. She reports that she set boundaries on both calls and told herself I can only do what I can I'm not responsible for the choices that they make. Able to reframe and utilize skills not to ruminate on these topics. Emotion is hopeful. She is tired this AM as she did not sleep well due to pain from pulling a muscle. Limited progress per pt. Benefited from group support and encouragement. Will continue in IOP to prevent decompensation, increase health coping, and maintain safety. Narrative Note: []
--- NOTE | 2021-04-28 10:57 | BH.COMM ---
Communication Note - Communication with Client Communication Note: Therapist briefly met with pt to see how pt is coping with stressors and to discuss updates. Pt shared feeling better this week and that she back to taking her medications consistently. Pt met with her special education case manager yesterday but did not get any solutions for housing and bill support. Pt did apply for a few jobs and plans to work more on her resume today at the [employer]. Pt reports improved motivation and more positive perspective this week. Therapist provided pt with a self-care checklist that was discussed last week. Pt also discussed boundaries that need set with her roommate. Pt will continue IOP tx for two more weeks to ensure prolonged mood stability and increase application of healthy coping skills.
--- NOTE | 2021-04-30 09:06 | BH.SGPN.GN ---
Behaviors/Verbalizations/Mental Status: []Eye contact is good. Motor activity is appropriate. Appearance is casual. Speech is Appropriate. Mood is anxious and euthymic. Affect is flat. Thoughts are linear and logical. No evidence of psychosis. Reviewed daily check in sheet and no reports of suicidal ideations or intent. Client Response/Progress/Benefit: [] Pt receptive of session and engaged throughout. Reports current emotion as ?hopeful? today as she was able to take time for self-care yesterday. Discussed receiving some much needed rest, as well as spending time outside enjoying the sunshine and sounds of the neighborhood. Pt reflected on mental health benefits of recognizing small joys in her daily life. Noted additionally speaking with someone about a potential job and is hopeful about this. Reports she does not have any significant stressors she would like to share today. Pt appeared to benefit from acknowledging progress and supportive feedback provided by group. Will continue with IOP tx to improve thought challenge skills, continue to stabilize mood, and prevent decompensation.
--- NOTE | 2021-04-30 10:15 | BH.SGPN.GN ---
Behaviors/Verbalizations/Mental Status: []Client alert and oriented, casually dressed and groomed. Eye contact good. Motor activity appropriate. Speech within normal limits. Affect congruent, mood euthymic. Thoughts linear, logical, no signs of hallucinations or delusions. Client Response/Progress/Benefit: []Client responded well to session AEB sharing and listening attentively to others. Client participated in activity illustrating how positive and negative perspectives affect how individuals view situations, sharing observations and insights. Group discussed and defined perspective and what impacts it, with client contributing amount of sleep as an example. Client identified that when she has a negative perspective, she is more likely to self sabotage, and when she has a positive perspective she is more likely to practice self care. Appeared to benefit from increased knowledge and self-awareness of perspective. Will continue IOP treatment to continue increasing application of self-care and decreasing negative self-talk to improve daily functioning. Narrative Note: []
--- NOTE | 2021-04-30 11:15 | BH.SGPN.GN ---
Behaviors/Verbalizations/Mental Status: []Client alert and oriented, casually dressed and groomed. Eye contact good. Motor activity appropriate. Speech within normal limits. Affect constricted, mood hopeful. Thoughts linear, logical, no signs of hallucinations or delusions Client Response/Progress/Benefit: []Pt did well to remain attentive throughout session, AEB providing input throughout discussion. Engaged as group reviewed the importance of taking a strengths-based approach to foster a healthier perspective and better manage mental health symptoms. Completed strengths exploration worksheet and identified personal strengths to include: bravery, spirituality, and forgiveness. Pt reported these strengths are currently helping pt stay consistent with treatment and self-reflect. Pt stated self-sabotage keeps pt from using strengths and pt helped group identify strategies to increase acknowledgement of strengths. Benefited from identifying personal strengths and strategies for enhancing use of identified strengths. Pt to continue IOP tx to promote prolonged mood stability, reduce distortions, and help pt gain confidence to join the workforce. Narrative Note: []
--- NOTE | 2021-05-03 09:01 | BH.SGPN.GN ---
Behaviors/Verbalizations/Mental Status: [] Eye contact is good. Motor activity is appropriate. Appearance is casual. Speech is Appropriate. Mood is euthymic. Affect is constricted. Thoughts are linear and logical. No evidence of psychosis. Reviewed daily check in sheet and no reports of suicidal ideations or intent. Client Response/Progress/Benefit: [] Pt was an active participant in group discussion. Attentive. Provided appropriate feedback. Pt identified mental health positive as spending time with her mom at the hospital. Pt stated she did get frustrated with the person in the room next to pt's mom because that person was trying to get pt's mom into trouble. Pt reported she had impulse to say something but was able to stay calm. Pt reported additional mental health positive as talking with her roommate about bills for next week and it going really well. Pt stated using direct communication has been helping with her roommate. Benefited from group support, encouragement, and feedback. Progress noted per pt report. Will continue in IOP to continue using healthy coping skills, maintain gains and continue using open, direct communication.
--- NOTE | 2021-05-03 10:05 | BH.SGPN.GN ---
Behaviors/Verbalizations/Mental Status: []Client alert and oriented, casually dressed and groomed. Eye contact good. Motor activity appropriate. Speech within normal limits. Affect congruent, mood irritable. Thoughts linear, logical, no signs of hallucinations or delusions. Client Response/Progress/Benefit: []Client responded well to session AEB sharing and listening attentively to others. Client participated in group discussion identifying what makes up a support system, what weakens it, and the benefits of social support. Client provided examples of benefits of social support, including having someone will to listen and make you feel like you are not alone. Client participated in experiential activity illustrating the importance of social support as well as modeling communication that strengthens support systems. Client expressed thoughts and feelings which arose due to the activity, and used emotional regulation skills to problem solve with group members and complete the activity. Appeared to benefit from increased knowledge of social support and self-awareness of personal support system. Will continue IOP treatment to continue improving mood stability and application of healthy coping skills to improve daily functioning. Narrative Note: []
--- NOTE | 2021-05-03 11:15 | BH.SGPN.GN ---
Behaviors/Verbalizations/Mental Status: []Client alert and oriented, casually dressed and groomed. Eye contact good. Motor activity appropriate. Speech within normal limits. Affect constricted, mood agitated. Thoughts linear, logical, no signs of hallucinations or delusions. Client Response/Progress/Benefit: []pt was an active participant throughout AEB contributing to discussion, providing personal examples, and taking notes. Pt processed emotions felt in the activity and how she wanted to quit due to frustration, but pt continued. Pt provided input during discussion on the types of support our supports can provide. Pt reports wanting to work on increasing social supports, noting this will provide pt emotional support and challenging perspective. Pt plans to improve this support by attending [facility]. Pt seemed to benefit from identifying the type of support and how this support will aid in promoting overall mental wellness. Progress noted in pt?s use of coping skills to manage frustration in the moment. Will continue IOP tx to increase emotional regulation skills and reduce negative thinking patterns. Narrative Note: []
--- NOTE | 2021-05-05 09:00 | BH.SGPN.GN ---
Behaviors/Verbalizations/Mental Status: []Eye contact is good. Motor activity is appropriate. Appearance is casual. Speech is appropriate. Mood is down. Affect is congruent. Thoughts are linear and logical. No evidence of psychosis. Reviewed daily symptom tracker sheet with no reports of suicidal ideations, plan, or intent. Client Response/Progress/Benefit: []Client was engaged throughout group session AEB sharing and listening attentively to others. Client reported her emotion as ?dismayed?. 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 Client reported being very upset by this and crying about it yesterday, though she was able to reframe, saying it's ?their loss?. Client reports she is motivated to find ?something better?, and plans to visit multiple businesses to obtain applications after group. Progress noted AEB client report of increase use of thought challenging. Appeared to benefit from supportive group environment and normalization of feelings. Will continue IOP treatment to continue increasing application of healthy coping skills and decreasing negative self-talk to improve daily functioning. Narrative Note: []
--- NOTE | 2021-05-05 10:10 | BH.SGPN.GN ---
Behaviors/Verbalizations/Mental Status: []Client alert and oriented, casually dressed and groomed. Eye contact good. Motor activity appropriate. Speech within normal limits. Affect constricted, mood calm. Thoughts linear, logical, no signs of hallucinations or delusions. Client Response/Progress/Benefit: []Pt was an active participant in group discussion and experiential activity. Attentive during psychoeducation. Group had an interactive discussion on the benefits of emotional regulation in which pt provided insight. Group identified several benefits to emotional regulation which included; more stable relationships, improved communication, and better ability to manage stress. Group also was able to identify how emotions can impact our communication leading to; difficulty articulating our thoughts, shutting down, mind-reading, and getting defensive. Pt participated in experiential activity and reported it can be hard for her to manage emotions, but she used calming skills and focusing on her parent to help in the activity. Benefited from increased awareness into how emotions can impact one's ability to effectively communicate. Will continue IOP tx to promote mood stability, improve daily functioning, and increase interpersonal effectiveness skills. Narrative Note: []
--- NOTE | 2021-05-05 11:20 | BH.SGPN.GN ---
Behaviors/Verbalizations/Mental Status: []Client alert and oriented, casually dressed and groomed. Eye contact fair. Motor activity appropriate. Speech within normal limits. Affect constricted, mood euthymic. Thoughts linear, logical, no signs of hallucinations or delusions. Client Response/Progress/Benefit: []Client engaged in session AEB client listening attentively to peers and providing input. Attentive during psychoeducation on 4 zones of regulation. Client able to identify feelings and behaviors for each zone. Client identified coping skills one can use to support self in each zone which included: self-care, prayer, journal, belly breathing.. Client reports she can benefit from practicing opposite action, daily goals, meditation, and reach out to supports. Benefited from increased education on zones of regulation or stages of alertness for emotions and healthy coping skills to use for each zone. Will continue IOP tx to prevent decompensation, continue healthy coping skills, practice communication skills.
--- NOTE | 2021-05-07 09:00 | BH.SGPN.GN ---
Behaviors/Verbalizations/Mental Status: []Eye contact is fair. Motor activity is appropriate. Appearance is casual. Speech is Appropriate. Mood is euthymic. Affect is constricted. Thoughts are linear and logical. No evidence of psychosis. Reviewed daily check in sheet and no reports of suicidal ideations or intent. Client Response/Progress/Benefit: []Pt responded well to session AEB sharing thoughts and feelings and listening attentively to peers. Pt stated yesterday was difficult because had to meet with outpatient therapist and they talked about difficult subject. Pt reported she is working through difficult emotions she has towards her mom leaving her when pt was a child. Pt stated her mom is dying and wants to work through this before her mom dies. Pt stated mental health positive as having a job interview next week. Pt reported she thinks having a job will be beneficial. Pt seemed to benefit from support from peers. Pt to continue IOP to continue use of healthy coping skills, challenge negative thoughts and prevent decompensation.
--- NOTE | 2021-05-07 10:14 | BH.SGPN.GN ---
Behaviors/Verbalizations/Mental Status: []Client alert and oriented, casually dressed and groomed. Eye contact good. Motor activity appropriate. Speech within normal limits. Affect constricted, mood mellow. Thoughts linear, logical, no signs of hallucinations or delusions. Client Response/Progress/Benefit: []Pt was an active participant in group discussion and activity. Attentive during psychoeducation. Pt participated in group discussion in which group defined fixed mindset and provided insight on how a fixed mindset could impact mental health. Pt?s fixed mindset thoughts included: I?m too old to try,? ?I?m not enough? and ?it?s not worth the effort.? Pt stated fixed thinking results in pt not reaching out, not ??doing anything? and not trying new things. Benefited from increased awareness on the role of fixed mindset on mental health. Will continue in IOP to promote mood stability, further increase emotional regulation skills, and improve daily functioning. Narrative Note: []
--- NOTE | 2021-05-07 11:14 | BH.SGPN.GN ---
Behaviors/Verbalizations/Mental Status: []Client alert and oriented, casually dressed and groomed. Eye contact good. Motor activity appropriate. Speech within normal limits. Affect congruent. mood anxious and euthymic. Thoughts linear, logical, no signs of hallucinations or delusions. Client Response/Progress/Benefit: []Client engaged during activity and discussion AEB providing some input, as well as taking notes throughout. Client did well to engage as group worked on identifying characteristics and benefits of adopting a growth mindset. Worked with fellow participants in reframing the example fixed thoughts into growth mindset thoughts, providing support throughout. Client worked in small group to apply skills learned to reframe own personal fixed thoughts. Reframed personal fixed thought of ?I?m not good enough? with growth mindset thought of ?I can continue to learn the skills to make myself feel better about me?. Noted that this would aid in reducing negative self-talk and improve confidence. Benefitted from discussing benefits of growth mindset and brainstorming strategies for prompting growth-mindset. Will continue IOP tx to continue to promote active thought challenging and skill application, maintain stability, as well as continue to improve healthy coping repertoire. Narrative Note: []
--- NOTE | 2021-05-10 09:00 | BH.SGPN.GN ---
Behaviors/Verbalizations/Mental Status: P[]Pt alert and oriented, casually dressed and groomed. Eye contact good, motor activity appropriate- mouth trembling at times, speech within normal limits. Affect, congruent. Mood, euthymic. Thoughts linear, logical, no signs of hallucinations or delusions. Reviewed pt's daily symptom tracker, no SI indicated. client Response/Progress/Benefit: []Pt responded well to session, attentive and providing encouragement to peers. Pt reports feeling enthusiastic this morning as pt got hired for a new job and discharges from IOP tx this week. Pt reflected on her progress and shared that she has a different perspective on boundaries, self-love, and her ability to cope with stressors since completing IOP. Pt shared she had a good weekend with friends and she also received some financial support from a friend while she waits for her new job to start. Pt's stressor today is that she feels she might be over-medicated as pt has been trembling and she feels more lethargic at times. Encouraged to discuss this with outpatient provider and this therapist will talk with [facility] psychiatrist. Pt appeared to benefit from reflecting on her growth and application of coping skills over the past weeks. Will continue IOP tx for one more day to reinforce healthy coping skills and discharge on 05/12/21. Narrative Note: []
--- NOTE | 2021-05-10 10:58 | BH.MDN ---
Multi-Disciplinary Note - Note 30-min Individual Time Started:: 10:30 Date: 05/10/21 Purpose of session/treatment goals addressed:: To address current stressors and discuss strategies to help cope with these stressors. Another goal was to discuss discharge and aftercare. Eye Contact:: Good Motor Activity:: Appropriate Appearance:: Casual Speech:: Appropriate Mood:: Euthymic Affect:: Congruent - smiling Thoughts:: Linear, Logical, No evidence of hallucinations/delusions noted Staff Interventions:: discharge planning, strengths perspective, reviewed DSM-5, taught coping skills - reviewed coping skills, other - reviewed progress in IOP. Client Response:: Pt responded well to session, open to meeting with therapist. Pt reports being very happy today as pt found out she got the job she interviewed for. Pt shared there is a huge sense of relief knowing she has employment. Pt is also proud of herself for all the progress she has made in [facility]. Pt identified this progress as having the courage to set boundaries, speaking up and standing up for herself, realizing she has the personal right to self-love, getting employment, and feeling stable. Pt also no longer has suicidal ideations and has not reported any auditory hallucinations since starting IOP. Pt shared she is most proud of her ability to interview for a job recently. Pt also reviewed coping skills that will help pt continue making progress such as boundary setting and calming skills. Pt reports being excited about graduating from the program and plans to participant in IOP aftercare. Risks/Concerns:: Pt denies any suicidal ideations, plan, or intent as of 05/10/21. No passive thoughts of . No HI. Progress Toward Goals/Plan:: Pt will discharge from [facility] level of care on 05/12/21. Pt has accomplished tx goals AEB overall symptom reduction and increased functioning. Pt has gained employment and reports overall mood stability. Pt plans to follow up with her outpatient therapist, case operator, and psychiatrist at [facility]. Pt can benefit from one more day of IOP tx to reinforce healthy coping skills and provide closure. Time Stopped:: 10:50
--- NOTE | 2021-05-10 11:10 | BH.SGPN.GN ---
Behaviors/Verbalizations/Mental Status: []Client alert and oriented, casually dressed and groomed. Eye contact good. Motor activity appropriate. Speech within normal limits. Affect constricted, mood euthymic. Thoughts linear, logical, no signs of hallucinations or delusions. Client Response/Progress/Benefit: []Client engaged participant AEB client participating in the activity, providing some input during small group discussion, and listening attentively to others. Client appeared to connect with discussion about what stigma has kept her from doing. Group brainstormed strategies to combat social and perceived stigma. Client shared one thing she can personally do to combat stigma is to educate self about mental health, open up to friends about her own mental health and stand up for mental illness. Appeared to benefit from increasing awareness of strategies to combat stigma. Will continue IOP tx to maintain gains and continue use of healthy skills.
--- NOTE | 2021-05-10 11:51 | BH.AFTERPLAN ---
Aftercare Plan - Demographics Treatment End Date:: 05/12/21 Psychiatrist:: Anita Morrison Psychiatrist Office #:: [phone] [facility]/IOP Therapist:: Yanely Pemberton Therapist Phone #:: [phone] - Plan Details Progress/Aftercare Plan Details:: Rebeca has made significant strides since starting IOP as shown by her reduced symptoms, ability to challenge negativity, and getting back to his daily functioning and activities. When Rebeca started IOP, she was depressed, anxious, and not doing the things she used to be able to do. Now, Rebeca is actively using healthy coping skills like opposite action, challenging negative thoughts, and using the awareness she has gained to manage her emotions. Rebeca self-reports progress gaining courage to set boundaries and stand up for herself, getting back into regular life functioning, and learning what self-love looks like. Rebeca was always attentive during group, offered emotional support to peers, and consistently followed through with goals. In individual sessions, Rebeca was receptive to feedback, consistent with homework, and willing to push herself. Rebeca?s overall DSM-5 scores decreased by 33% since admission. Rebeca plans to follow up with outpatient counseling with her providers at [facility]. Strategies for Success:: 1. Continue setting boundaries with supports and reflecting on how current boundaries are impacting you. 2. Keep using your self-care plan. 3. Calming skills like guided imagery, deep breathing, and the 5-senses. 4. Challenge negative perspectives...don't let the distortion police get you! 5. Continue to communicate what you need with your supports and stand up for yourself. 6. Work with your outpatient provider to manage medications. 7. Remember to take a step back and breathe if you are feeling frustrated or overwhelmed. 8. Remind yourself how far you have come since starting and give yourself credit! - Appointments Appointments/Referrals to Other Services:: 1. Follow up with Erik for individual counseling every other week. 2. Follow up with Emilia for case management. 3. Follow up with Terrance Aponte for medication management. 4. Follow up with IOP aftercare starting 05/13/21 from 2:00-3:30pm. - Medications Home Medications: Home Medications hydrocodone-acetaminophen 1 tab PO TID 06/20/15 metoprolol succinate 50 mg PO DAILY 02/04/21 albuterol sulfate 1 - 2 puff INHALATION Q4H PRN PRN 02/24/21 atorvastatin 20 mg PO DAILY 02/24/21 furosemide 20 mg PO DAILY 02/24/21 metformin 500 mg PO BID 02/24/21 omeprazole 20 mg PO DAILY 02/24/21 ergocalciferol (vitamin D2) [Vitamin D2] 50,000 unit PO QWEEK 03/24/21 prazosin 1 mg PO QHS 03/24/21 risperidone [Risperdal] 3 mg PO BID 03/24/21 sertraline [Zoloft] 100 mg PO BID 03/24/21 trazodone 150 mg PO QHS 03/24/21 hydroxyzine pamoate [Vistaril] 25 mg PO BID PRN #60 cap 04/07/21 mirtazapine [Remeron] 30 mg PO QHS #30 tab 04/07/21
--- NOTE | 2021-05-12 09:00 | BH.SGPN.GN ---
Behaviors/Verbalizations/Mental Status: [] Eye contact is good. Motor activity is appropriate. Appearance is casual. Speech is Appropriate. Mood is euthymic, positive. Affect is congruent. Thoughts are linear and logical. No evidence of psychosis. Reviewed daily check in sheet and no reports of suicidal ideations or intent. Client Response/Progress/Benefit: [] Pt was an engaged participant in group discussion. Attentive. Pt identified mental health positive as successfully graduating from [facility] today. Pt stated she feels excited that she completed the program but nervous to be done. Pt reported additional mental health positive as getting a new job that she starts next week. Pt reported she can note lot of treatment progress since starting [facility]. Pt shared most significant progress was having improved mood stability. Pt shared feeling grateful today. Benefited from group support, encouragement, and feedback. Progress noted per pt report. Pt will discharge from [facility] today.
--- NOTE | 2021-05-12 11:10 | BH.SGPN.GN ---
Behaviors/Verbalizations/Mental Status: []Client alert and oriented, casually dressed and groomed. Eye contact good. Motor activity appropriate. Speech within normal limits. Affect congruent, mood euthymic. Thoughts linear, logical, no signs of hallucinations or delusions. Client Response/Progress/Benefit: []Client engaged participant AEB client taking notes and providing input during discussion. Attentive throughout group discussion on the various areas of self-care, benefits, and types of self-care activities for each area. Client completed worksheet which identified current self-care practices and what self-care activities client wants to start using. Client selected psychological self-care as the area of self-care client would like to improve. Client plans to do this by unplugging from electronics and learning about her diagnosis. Client reports she is doing well with professional and spiritual self-care. Appeared to benefit from completing the self-care evaluation and gaining insights into current self-care practices, as well as identifying areas in which she would like to improve upon. Will discharge from IOP tx today as client has met her treatment goals and no longer meets criteria for IOP level of care. Narrative Note: []
--- NOTE | 2021-05-12 11:38 | BH.COMM ---
Communication Note - Communication with Client Communication Note: Met with client this AM to talk about medications and client's complaints of involuntary lip/chin movement she has had over the last couple of weeks. Client states she has began to notice the lip/chin tremor since increasing her Risperdal dose to 3mg twice daily. Client also reports feeling more lethargic. Discussed symptoms with Dr. Carballo and per Dr. Carballo's instruction, discussed with client decreasing her dose of Risperdal to 4mg total daily at bedtime. Spoke with client about this and client is in agreeance. Client states she has appropriate Risperdal pills at home to make this dosage until she meets with her outpatient psychiatrist on 05/25/21. Client instructed to call outpatient provider if symptoms worsen or she has any questions before her appointment. Client voices understanding.
--- NOTE | 2021-05-12 14:59 | BH.DS_ITS ---
Discharge Summary - Demographics Date of Admission:: 03/22/21 Discharge Date: 05/12/21 Presenting Problems at Admission:: Client is a 55-year-old female with a history of schizoaffective disorder bipolar type. Client reports history of seven previous hospitalizations with the most recent two being in the last two months. Client was recently hospitalized at [facility] from 02/24/21- 03/03/21 due to suicidal ideation with plan to jump off a bridge. Client had not been hospitalized in 20 years prior to these past two hospitalizations. at admission, client reported decompensation was due to psychosocial stressors and conflict with her roommate. Client reported chronic SI and hallucinations, but denies any command hallucinations now. Client reported auditory hallucinations are ongoing, but less intense and frequent. Reported depressive symptoms have improved since discharging from the hospital, but she still feels low. Client endorsed low motivation, anhedonia, and lack of motivation. At admission, client's symptoms were significantly impacting her overall functioning and quality of life. Discharge Diagnoses:: Schizoaffective disorder, bipolar type F 25.0; PTSD; Generalized anxiety disorder Reason for Discharge:: Client has made significant progress towards her treatment goals AEB her reduction in DSM-5 symptom scores, self-report of increased ability to managing symptoms, and improved functioning. Client no longer meets criteria for IOP level of care and will transition to outpatient counseling and IOP aftercare. - Treatment Progress During Treatment & Response: Client self-reports progress in gaining courage to set boundaries and stand up for herself, getting back into regular life functioning, and learning what self-love looks like. When client discharge d, she had just found out she the job she applied for which was one of client?s main goals. Client was always attentive during group, offered emotional support to peers, and consistently followed through with goals. In individual sessions, client was receptive to feedback, consistent with homework, and willing to push herself. Client?s overall DSM-5 scores decreased by 33% since admission. In jenny tion, client denied any auditory hallucinations at discharge or suicidal ideations. Client?s anxiety slightly increased from admission, but client reports this is due to the positive stressors coming up such as starting a new job. Overall, client reports increased ability to function and regulate her emotions. Issues Still to be Addressed:: Client can benefit from ongoing therapy to reinforce grounding skills, emotional regulation skills, boundary setting, interpersonal communication skills, and thought challenging. Client reported concern of being over medicated and IOP psychiatrist decreased client's Risperdal on 04/14/21 and this will need to be monitored by client's outpatient providers. Discharge Recommendations/Instructions:: Client is recommended to continue seeing her outpatient mental health providers at [facility]. Client sees Erik Matthews for individual therapy next week. Client also has a registered nurse hh case manager, Emilia, that she sees at [facility] as well. Client will follow up with Terrance Aponte for medication management on 05/25/21 at 8:00am. Lastly, client will start IOP aftercare group on 05/13/21. Discharge Handout: Complete Discharge Handout with client on aftercare options and continuity of care.
== END 2021-05-12 14:33 | disposition home or self-care (01) ==
LOC: BHIOP 07:41
PROVIDERS: Referring Provider Psychiatry & Neurology Psychiatry; Visit Provider Psychiatry & Neurology Psychiatry
DX: F25.0 Schizoaffective disorder, bipolar type (principal); F43.10 Post-traumatic stress disorder, unspecified; F41.8 Other specified anxiety disorders; Z79.899 Other long term (current) drug therapy
CPT/HCPCS: 99213; H2012; H2020; S9480; T1002; 90832

== ENCOUNTER 2021-05-13 09:00 | Outpatient (RCR) | payer MEDICAID, SELFPAY ==
--- NOTE | 2021-05-13 14:00 | BH.SGPN.GN ---
Behaviors/Verbalizations/Mental Status: []Client alert and oriented, casually dressed and groomed. Eye contact good. Motor activity appropriate. Speech within normal limits. Affect constricted, mood euthymic. Thoughts linear, logical, no signs of hallucinations or delusions. Client Response/Progress/Benefit: []Pt receptive of session, engaged throughout. Pt completed her aftercare self-reflection worksheet sharing she has been taking her meds, seeing her therapist, and setting boundaries. Receptive of discussion on personal accountability and its importance in maintaining mental health stability. Pt worked cooperatively with group to identify benefits of maintaining personal accountability. Engaged in brainstorming strategies for improving ability to hold themselves accountable. Reported she wants to work on catching negative self-talk and challenging it to help hold herself more accountable with other goals. Pt seemed to benefit from support from peers and increasing understanding of personal accountability benefits and strategies. Will continue IOP aftercare group to maintain gains and prevent decompensation. Narrative Note: []
--- NOTE | 2021-05-13 14:02 | BH.MTP ---
Master Treatment Plan - Patient Information Program Physician:: Dr. Anita Morrison Primary Therapist:: Yanely QIU - Psychiatric Diagnoses Psychiatric Diagnoses:: Schizoaffective disorder, bipolar type F 25.0; PTSD; Generalized anxiety disorder Diagnosis Code(s):: F 25.0 - Estimated LOS Estimated LOS (in weeks):: 12 Problem/Goal #1 - Problem/Goal #1 Stated Goal:: client will maintain or see a reduction in symptoms AEB client score on the DSM 5 cross-cutting measure and improve client's daily functioning. - Objectives Objective #1 Stated Objective: Client will continue to consistently apply healthy coping skills to maintain progress made in IOP tx. Interventions: Through group therapy, client will review warning signs and triggers as well as healthy coping skills learned in IOP tx to successfully maintain gains while transitioning into outpatient therapy. Discharge Criteria: Client will have accomplished this goal when client's score on the DSM-5 cross-cutting measure has either maintained or reduced over a 12 week period. Target Date: 08/05/21 Review Date: 06/10/21 Status: open Objective #2 Stated Objective: Client will learn and utilize 2-3 maintenance strategies to prevent decompensation. Interventions: Through group therapy, client will be provided with education on healthy maintenance behaviors, relapse prevention techniques, and healthy coping strategies. Discharge Criteria: Client will have accomplished this goal when can report using at least 2 maintenance skills to prevent decompensation. Target Date: 08/05/21 Review Date: 06/10/21 Status: open
--- NOTE | 2021-05-20 14:00 | BH.SGPN.GN ---
Behaviors/Verbalizations/Mental Status: []Client alert and oriented, casually dressed and groomed. Eye contact good. Motor activity appropriate. Speech within normal limits. Affect congruent, mood euthymic. Thoughts linear, logical, no signs of hallucinations or delusions. Client Response/Progress/Benefit: []Client responded well to session AEB sharing and listening attentively to others. Client reported setting boundaries at her new job this week and asking for help as coping skills. Client reported continuing with her outpatient individual therapist and psychiatrist. Client reports taking her medications consistently. Client provided insight throughout group discussion of healthy decision making, including what goes into making a healthy decision and what keeps us from making them. Client participated in experiential small group activity and processing. Client identified physical self-care and finances as areas where she would like to make healthier decisions. Client?s goal to work towards making healthier decisions this week is to not ?eat whites? as part of her diet. Appeared to benefit from increased knowledge of healthy decision making and increased self-awareness of areas in need of growth. Will continue aftercare treatment to reinforce healthy coping skills and promote gains. Narrative Note: []
== END 2021-05-20 23:59 ==
LOC: BHOG 09:00
PROVIDERS: Visit Provider Psychiatry & Neurology Psychiatry
DX: F25.0 Schizoaffective disorder, bipolar type (principal); F43.10 Post-traumatic stress disorder, unspecified; F41.8 Other specified anxiety disorders
CPT/HCPCS: 90853

== ENCOUNTER 2021-05-21 10:35 | Outpatient (RCR) | payer MEDICAID, SELFPAY ==
--- NOTE | 2021-05-27 02:00 | BH.SGPN.GN ---
Behaviors/Verbalizations/Mental Status: []Client alert and oriented, casually dressed and groomed. Eye contact good. Motor activity appropriate. Speech within normal limits. Affect congruent, mood euthymic. Thoughts linear, logical, no signs of hallucinations or delusions. Client Response/Progress/Benefit: []Client responded well to session AEB sharing and listening attentively to others. Client reported setting boundaries and recognizing that fear led to an argument with her roommate and is working on understanding what makes her fearful with her outpatient individual therapist. Client reported meeting with her outpatient individual therapist today, and has appointments scheduled to see her psychiatrist and patient case manager in the coming weeks. Client reports taking her medications consistently. Client reported working on goals set at previous session, making healthy decisions by getting out and walking this past week and working on budgeting. Client participated in group discussion defining affirmations and why they are important. Client provided insight throughout clinician?s presentation of tips for writing personal affirmations. Client wrote her own affirmations, including ?I am worthy of the genevieve I experience today?. Client appeared to benefit from increased knowledge of affirmation writing and increased self-awareness. Will continue aftercare treatment to reinforce healthy coping skills and promote gains. Narrative Note: []
--- NOTE | 2021-06-03 14:00 | BH.SGPN.GN ---
Behaviors/Verbalizations/Mental Status: []Client alert and oriented, casually dressed and groomed. Eye contact good, at times tearful when sharing. Motor activity appropriate. Speech within normal limits. Affect constricted, mood euthymic. Thoughts linear, logical, no signs of hallucinations or delusions. Client Response/Progress/Benefit: [] Pt responded well to session, engaged and remaining attentive and willing to participate in discussion throughout. Pt reported she did see her therapist last week and has been taking medications consistently. Pt stated she has been challenging negative thoughts, setting boundaries, and using breathing skills as strategies to manage emotions and stressors. Pt reported connecting with the topic of routine and structure and it?s importance in ongoing mental health maintenance. Pt engaged in brainstorming of various daily routine ideas. Pt completed task of identifying current routine practices as well as important tasks to begin more regularly implementing into a structured daily routine. Pt seemed to benefit from support from peers and learning about benefits of routine. Pt to continue aftercare group to promote ongoing use of healthy coping, continue to use open communication, and prevent decompensation.
--- NOTE | 2021-06-10 14:00 | BH.SGPN.GN ---
Behaviors/Verbalizations/Mental Status: []Client alert and oriented, casual in appearance. Eye contact good. Motor activity appropriate. Speech within normal limits. Affect congruent. Mood euthymic. Thoughts linear, logical, no signs of hallucinations or delusions Client Response/Progress/Benefit: []Pt responded well to session AEB providing input throughout and listening attentively to others. Pt reported current emotion as ?happy? and attributes this in part to the weather as well as adjusting to work. Pt reports she has remained consistent with regular outpatient counseling and ongoing medication management. Pt identified several coping skills she has been using over the past week to continue to manage mental health sx and maintain mood stability, which included: taking a step back and taking a breath, advocating for her mom using assertive rather than aggressive communication, and continuing her prayer journal. Pt connected with self-reflection discussion. Worked with group to identify the benefits of self-reflection. Seemed to benefit from identifying how to incorporate self-reflection into life more often. Pt completed aftercare specific self-reflection activity and indicated she has seen improvements in overall ability to recognize and communicate her mental health struggles with supports. Explained she would like to continue to focus on making improvements in her ability to manage her emotions when it comes to her mother. Willing to complete weekly self-reflection assignment for homework. Pt to continue aftercare to maintain gains and prevent decompensation. Narrative Note: []
--- NOTE | 2021-06-10 15:23 | BH.MTP_ITS ---
Treatment Plan Review Date of Admission:: 05/13/21 Date of Treatment Plan Review:: 06/10/21 Admitting Diagnoses:: Schizoaffective disorder, bipolar type F 25.0; PTSD; Generalized anxiety disorder Current Diagnoses:: Schizoaffective disorder, bipolar type F 25.0; PTSD; Gen eralized anxiety disorder Patient's Response to Treatment:: Pt responding well to treatment AEB pt's consistent attendance, active engagement in group discussions, follow up with outpatient therapy and psychiatry, and reporting use of skills outside treatment environment. Status of Current Problems and Symptoms: Ongoing stressors include adjusting to work stress, advocating for her needs at work and with supports, and working through her childhood trauma in individual therapy. Symptoms of anxiety and depression are present, but mild per pt report. Problem #1 Problem Name:: Pt will maintain or see a reduction in sx Status of Goals:: Obj 1 - Pt has been able to maintain gains made in IOP based on pt's additional reduction in symptoms per the DSM-5. Based on pt's self- report she reports improved mood, increased self-advocacy, using skills more consistently, functioning well at work, and improved relationships. Obj 2 - complete with ongoing work encouraged. Client has been consistently reporting using self-talk, writing letters in therapy, and opposite action to cope. Team Recommendations:: Recommended client continue IOP aftercare group in addition to attending regular outpatient counseling in order to maintain gains.
--- NOTE | 2021-06-18 14:00 | BH.SGPN.GN ---
Behaviors/Verbalizations/Mental Status: []Client alert and oriented, casually dressed. Eye contact good. Motor activity appropriate. Speech within normal limits. Affect constricted, mood euthymic. Thoughts linear, logical, no signs of hallucinations or delusions. Client Response/Progress/Benefit: []Pt responded well to session AEB pt providing input during discussion and listening attentively to peers. Pt reported she is seeing her individual therapist today and has been taking medication consistently. Pt reported she was faced with two stressors this week with the first being her [id number] going in hospice care and the second finding out she might have to go on insulin. Pt reported she coped with these stressors by allowing herself to feel the emotions and cry. Pt stated she didn't let herself stay in the sadness. Pt engaged in discussion about self-love. Pt worked with group to identify strategies to increase self-love. Pt stated wanting to work on self-love by reaching out to healthy support during difficult times. Pt seemed to benefit from reviewing treatment progress and stressors as well as learning about how to increase self-love. Pt to continue aftercare group to promote ongoing use of healthy coping, continue to use open communication, and prevent decompensation.
== END 2021-06-19 23:59 ==
LOC: BHOG 10:35
PROVIDERS: Visit Provider Psychiatry & Neurology Psychiatry
DX: F25.0 Schizoaffective disorder, bipolar type (principal); F43.10 Post-traumatic stress disorder, unspecified; F41.1 Generalized anxiety disorder
CPT/HCPCS: 90853

== ENCOUNTER 2021-06-21 08:35 | Outpatient (RCR) | payer MEDICAID, SELFPAY ==
--- NOTE | 2021-06-24 14:00 | BH.SGPN.GN ---
Behaviors/Verbalizations/Mental Status: []Client alert and oriented, casual in appearance. Eye contact good. Motor activity appropriate. Speech within normal limits. Affect congruent. Mood euthymic. Thoughts linear, logical, no signs of hallucinations or delusions Client Response/Progress/Benefit: []Pt responded well to session AEB pt openly sharing thoughts and feelings and completing worksheet. Pt completed the self-reflection sheet stating they have been taking medications consistently, saw their therapist this week, and has been following up with their psychiatrist. Pt reports feeling better this week because their blood sugar is more stable. Pt also reports using coping skills such as celebrating her wins, writing a letter to her mother in therapy, and advocating for herself at work. Pt responded well to group discussion and review about self-care. Pt stated they will work on following self-care activities: writing in her prayer journal, eating healthy, and going for a walk. Pt seemed to benefit from support from peers and identifying self-care plan. Pt will continue IOP aftercare to promote gains and further increase mood stability. Narrative Note: []
--- NOTE | 2021-07-08 14:00 | BH.SGPN.GN ---
Behaviors/Verbalizations/Mental Status: []Pt alert and oriented, neatly dressed and groomed. Eye contact good. Motor activity appropriate. Speech within normal limits. Affect constricted, mood euthymic. Thoughts linear, logical, no signs of hallucinations or delusions. Client Response/Progress/Benefit: []Pt responded well to session, actively contributing. Pt checked in using the self-reflection worksheet. Pt had counseling this week and communicated with her psychiatrist. Pt has been taking medication as prescribed and has been using breathing, counting, writing letters, and self-advocacy to cope with stressors. Pt contributed to the discussion on gratitude and its benefits. Pt attentive during discussion of internal vs. external gratitude. Pt receptive to participating in the group seven-day gratitude challenge. Pt selected one gratitude reflection per day and stated to hold herself accountable, she is going to remind herself daily why she is doing this. Appeared to benefit from connecting with peers and practicing gratitude. Will continue IOP tx promote mood stability and reinforce healthy coping skills. Narrative Note: []
--- NOTE | 2021-07-15 14:00 | BH.SGPN.GN ---
Behaviors/Verbalizations/Mental Status: []Client alert and oriented, casually dressed and groomed. Eye contact good. Motor activity appropriate. Speech within normal limits. Affect congruent, mood anxious and dysthymic. Thoughts linear, logical, no signs of hallucinations or delusions. Client Response/Progress/Benefit: []Pt responded well to session, provided input, and listened attentively to peers. Reported continuing to maintain consistent counseling and psychiatry appointments. Identified ongoing use of healthy skills such as communicating her boundaries with a co-worker and advocating for herself regarding schedule changes at work as well. Pt reports this has helped to prevent unnecessary additional stressors and keep working on her mental health goals. Pt engaged in discussion on self-advocacy. Worked with group to identify the benefits of self-advocacy, as well as common barriers. Reviewed the personal bill of rights and shared she does well to advocate for her right to ?ask for what I want?. Discussed struggling with personal right of ?I have the right to make mistakes and not be perfect?. Noted plans to take steps in better advocating for this right by simply reminding herself she has the right, as well as by challenging herself to use compassion when making mistakes. Client seemed to benefit from reviewing treatment progress and skill application, as well as learning about how to increase self-advocacy. Client to continue aftercare to promote gains, prevent regression, and further improve functioning. Narrative Note: []
--- NOTE | 2021-07-15 15:57 | BH.DS_ITS ---
Discharge Summary - Demographics Date of Admission:: 05/13/21 Discharge Date: 07/15/21 Presenting Problems at Admission:: Pt discharged from IOP tx and transitioned to IOP aftercare to maintain gains Pt made in IOP and to reinforce healthy coping skills. At admission to IOP aftercare, pt continued to report symptoms of depression and anxiety at mild severity. Pt also was getting ready to return to the workforce and was still experiencing financial stress. Discharge Diagnoses:: Schizoaffective disorder, bipolar type F 25.0; PTSD; Generalized anxiety disorder Reason for Discharge:: Pt has accomplished tx goals AEB ability to maintain mood stability and gains made in IOP. Pt's DSM-5 scores decreased by an additional 42% from IOP admission. Pt will transition to traditional outpatient counseling. - Treatment Progress During Treatment & Response: Pt responded well and made progress in IOP aftercare as evidenced by pt's participation in group discussions and self- report of consistently applying coping skills. Pt's overall DSM-5 scores decreased by 42% from IOP admission. Pt?s depression decreased by 50% since IOP admission and pt was able to maintain scores for anxiety from IOP discharge which were mild. Additionally, at discharge Pt was reporting an improved mood, more positive thinking patterns, consistent use of healthy coping skills, and improved ability to function at work. Issues Still to be Addressed:: Process trauma from childhood (working on this in individual therapy), healthy relationships and boundaries, strengthening emotio nal regulation skills, and maintenance of healthy coping skills. Discharge Recommendations/Instructions:: Pt will continue getting services through [facility]. Pt sees Erik Matthews on a weekly basis for counseling. Pt has a rn case management and a psychiatry through [facility] as well. Pt recently saw her director of psychiatry and did not report any issues with medication. Discharge Handout: Complete Discharge Handout with client on aftercare options and continuity of care.
== END 2021-07-15 15:30 | disposition home or self-care (01) ==
LOC: BHOG 08:35
PROVIDERS: Visit Provider Psychiatry & Neurology Psychiatry
DX: F25.0 Schizoaffective disorder, bipolar type (principal); F41.1 Generalized anxiety disorder
CPT/HCPCS: 90853

== ENCOUNTER 2022-11-24 23:00 | Emergency (ER) | payer MEDICAID, SELFPAY ==
[2022-11-24 23:01] VITALS: BP 144/90; PULSE 92; RESP 16; TEMP 36.4; O2SAT 97; BMI 32.2
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
--- NOTE | 2022-11-24 23:44 | ED.RN ---
Irma alvarez DC'bryan at 0795 after MD assessment.
[2022-11-25 00:06] LABS: Alcohol, Blood (Medical)-Serum < 3.0 mg/dL
[2022-11-25 00:07] LABS: Absolute Lymphocyte Count 2.87 X10^3/uL (0.83-4.51); Absolute Neutrophil Count 4.3 X10^3/uL (2.0-7.7); Anion Gap 3 (5-15); BUN 26 mg/dL (7-18); BUN/Creat Ratio 37.4 RATIO (10-20); Basophil# 0.04 X10^3/uL; Basophil% 0.5 % (0-1); Calcium,Total 8.6 mg/dL (8.5-10.1); Chloride 109 mmol/L (98-107); EST Glomerular Filtration Rate 92 mL/min (>60); Eosinophil# 0.13 X10^3/uL; Eosinophils% 1.7 % (0-5); Est Glom Filt Rate - Afr Amer 111 mL/min (>60); Estimated Creatinine Clearance 72.47 ml/min; Glucose 109 mg/dL (74-106); Hematocrit 38.8 % (37-47); Hemoglobin 12.7 g/dL (12.0-15.0); Lymphocyte # 2.87 X10^3/ul (0.83-4.51); Lymphocyte % 36.7 % (19-41); Mean Corp Hgb Conc 32.7 g/dL (32-36); Mean Corpuscular Hgb 29.9 pg (27.0-32.0); Mean Corpuscular Volume 91.3 fL (81-99); Mean Platelet Vol. 9.5 fl (6.2-12.0); Monocyte# 0.41 X10^3/uL; Monocyte% 5.2 % (0-10); NRBC Flagged by Analyzer 0 % (0-5); Neutrophil # 4.31 X10^3/uL (2.7-7.7); Neutrophil % 55.1 % (47-70); Platelet Count 287 K/mm3 (150-450); Potassium 3.8 mmol/L (3.5-5.1); RBC Distribution Width CV 12.6 % (11.6-14.6); RBC Distribution Width SD 41.9 fl (35.1-43.9); Red Blood Count 4.25 M/mm3 (4.2-5.4); Sodium Level 140 mmol/L (136-145); White Blood Count 7.8 K/mm3 (4.4-11.0)
[2022-11-25 00:10] LABS: Amphetamine Urine VISTA NEGATIVE (<1000 ng/mL); Barbiturate Urine VISTA NEGATIVE (< 200 ng/mL); Benzodiazepine Urine VISTA NEGATIVE (< 200 ng/mL); Cocaine Urine VISTA NEGATIVE (< 300 ng/mL); Ecstacy Urine VISTA NEGATIVE (< 500 ng/mL); Methadone Urine VISTA NEGATIVE (< 300 ng/mL); PCP Urine VISTA NEGATIVE (< 25 ng/mL); THC Urine VISTA POSITIVE (< 50 ng/mL); Vista UDS pH Range 5
--- NOTE | 2022-11-25 01:02 | ED.RN ---
[facility] CALLED TO SEE PATIENT AND CHART FAXED TO THEM
[2022-11-25 01:24] VITALS: RESP 16
--- NOTE | 2022-11-25 01:24 | ED.RN ---
[facility] here to see patient
[2022-11-25 02:08] VITALS: PULSE 85; RESP 16; O2SAT 98
--- NOTE | 2022-11-25 03:22 | ED.RN ---
patient plending placement at [facility]
[2022-11-25 03:23] VITALS: RESP 16
[2022-11-25 04:08] VITALS: RESP 18
--- NOTE | 2022-11-25 04:32 | NURSING ---
MARTHA CALLED ETA [phone]
[2022-11-25 05:24] VITALS: BP 119/77; PULSE 77; RESP 16; TEMP 36.7; O2SAT 95
[2022-11-25 05:26] VITALS: BP 119/77; RESP 16
[2022-11-25] MEDS: HYDROcodone Bitartrate/Apap 5/325 Tablet PO (06:07)
[2022-11-25] MEDS: Pantoprazole Sodium 20 MG Tablet PO (06:07)
[2022-11-25] MEDS: Metoprolol(XL)Succ 50 MG Tablet PO (06:08)
--- NOTE | 2022-11-25 06:47 | ED.RN ---
0610 pt not happy that she did not get her medication the way she takes them at home.i get up early and I expect them to be given at 0500. pt made aware that there is a wait time for her medication with pharmacy. empathy given. [facility] nurse,cristiano made aware.
== END 2022-11-25 06:45 ==
LOC: ED 23:46
PROVIDERS: Emergency Provider Emergency Medicine; PCP Nurse Practitioner Primary Care; Visit Provider Emergency Medicine
DX: R45.851 Suicidal ideations (principal); F25.9 Schizoaffective disorder, unspecified; E11.9 Type 2 diabetes mellitus without complications; I10 Essential (primary) hypertension; F17.210 Nicotine dependence, cigarettes, uncomplicated; E78.00 Pure hypercholesterolemia, unspecified; F41.1 Generalized anxiety disorder; Z79.899 Other long term (current) drug therapy; J45.909 Unspecified asthma, uncomplicated; K21.9 Gastro-esophageal reflux disease without esophagitis; Z79.84 Long term (current) use of oral hypoglycemic drugs; Z79.85 Long-term (current) use of injectable non-insulin antidiabetic drugs; F32.9 Major depressive disorder, single episode, unspecified; R44.0 Auditory hallucinations
CPT/HCPCS: 80048; 80307; 82077; 85025; 87811; 99285